=== PATIENT | male | born 1955 | race Caucasian/White ===

== ENCOUNTER 2016-10-23 10:24 | Emergency (ER) | payer BC, OTHER ==
[2016-10-23 10:31] VITALS: BMI 33.6
[2016-10-23] MEDS ORDERED: ONDANSETRON 4 MG/2 ML VIAL IVPB ONE (10:58)
[2016-10-23] MEDS ORDERED: morphine CARPU-JECT 4 MG/1 ML DISP.SYRIN IVPUSH ONE (10:58)
[2016-10-23] MEDS ORDERED: SODIUM CHLORIDE 500 ML IV ONE (10:58)
[2016-10-23] MEDS ORDERED: morphine CARPU-JECT 4 MG/1 ML DISP.SYRIN ONE (10:59)
[2016-10-23] MEDS ORDERED: ONDANSETRON 4 MG/2 ML VIAL ONE (11:00)
--- NOTE | 2016-10-23 11:14 | PDOC ---
History of Present Illness - General History Source: Patient Exam Limitations: No Limitations - History of Present Illness Initial Comments: 10/23/16 11:14 The patient is a 61 year old male, with no significant past medical history who presents to the emergency department with right testicular pain, nausea, and vomiting since this morning. The patient reports acute onset of right testicular /groin pain this morning, waking up from sleep secondary to pain. He reports his pain occasionally radiates from, his right flank into his testicle. He reports his pain is constant with intermittent intensity often worse at certain without any clear aggravating factors. He reports taking Aleve this morning with moderate alleviation of his pain. He denies any history of kidney stones. He denies his testicular pain being worse while urinating. He notes urinating normally, describing his urine as a full uninterrupted stream. He denies any recent fevers, chills, headache or dizziness. He denies any recent diarrhea or constipation. He denies any recent chest pain or shortness of breath. He denies any recent dysuria, frequency, urgency or hematuria. Allergies: NKA Past surgical history: None reported. Social History: Nonsmoker. Denies EtOH use and recreational drug use. <Jamar Guillory - Last Filed: 10/23/16 11:14> <Neal Espino - Last Filed: 10/23/16 16:26> - General Chief Complaint: Pain, Acute Stated Complaint: NAUSEA Time Seen by Provider: 10/23/16 10:57 Past History <Jamar Guillory - Last Filed: 10/23/16 11:14> - Past Medical History Other medical history: Denies - Immunization History Immunization Up to Date: Yes - Psycho/Social/Smoking Cessation Hx Anxiety: No Suicidal Ideation: No Smoking History: Never smoked Have you smoked in the past 12 months: No If you are a former smoker, when did you quit?: 10yrs Information on smoking cessation initiated: No Hx Alcohol Use: No Drug/Substance Use Hx: No Substance Use Type: None <Neal Espino - Last Filed: 10/23/16 16:26> - Past Medical History Allergies/Adverse Reactions: Allergies Allergy/AdvReac Type Severity Reaction Status Date / Time No Known Allergies Allergy Verified 10/23/16 10:31 Home Medications: Ambulatory Orders Naproxen [Naprosyn -] 500 mg PO BID PRN #14 tablet 10/23/16 Oxycodone HCl/Acetaminophen [Percocet 5-325 mg Tablet] 1 - 2 tab PO TID PRN #20 tab MDD 6 10/23/16 Tamsulosin HCl [Flomax -] 0.4 mg PO DAILY #14 cap.er.24h 10/23/16 Review of Systems - Review of Systems Constitutional: No: Chills, Fever Respiratory: No: Cough, Shortness of Breath Cardiac (ROS): No: Chest Pain ABD/GI: Yes: Nausea. No: Constipated, Diarrhea, Vomiting : Yes: Frequency. No: Burning, Discharge, Flank Pain, Hematuria, Incontinence Integumentary: No: Rash All Other Systems: Reviewed and Negative <Neal Espino - Last Filed: 10/23/16 16:26> *Physical Exam - Vital Signs Last Vital Signs Temp Pulse Resp BP Pulse Ox 97.7 F 51 L 16 144/87 100 10/23/16 10:28 10/23/16 10:28 10/23/16 10:28 10/23/16 10:28 10/23/16 10:28 - Physical Exam Comments: 10/23/16 11:14 GENERAL: The patient is awake, alert, and fully oriented, in no acute distress. HEAD: Normal with no signs of trauma. EYES: Pupils equal, round and reactive to light, extraocular movements intact, sclera anicteric, conjunctiva clear with no pallor. ENT: Ears normal, nares patent, oropharynx clear without exudates. Moist mucous membranes. NECK: Normal range of motion, supple without lymphadenopathy, JVD, or masses. LUNGS: Breath sounds equal, clear to auscultation bilaterally. No wheeze/ crackles. HEART: Regular rate and rhythm, normal S1 and S2 without murmur or rub. ABDOMEN: Soft/nontender/nondistended. BS wnl. No guarding or rebound. No palpable masses. No hepatosplenomegaly. NO CVA tenderness. : Normal uncircumcised. No urethral discharge. Non tender focally. Bilaterally distended testicles. No scrotal swelling or erythema. No inguinal hernia or lymphadenopathy. No palpably distended bladder EXTREMITIES: Normal range of motion, no edema. No clubbing or cyanosis. No cords , erythema, or tenderness. NEUROLOGICAL: Cranial nerves II through XII grossly intact. Normal speech, normal gait. PSYCH: Normal mood, normal affect. SKIN: Warm, Dry, normal turgor, no rashes or lesions noted. <TorreyJamar Heredia - Last Filed: 10/23/16 11:14> - Vital Signs Last Vital Signs Temp Pulse Resp BP Pulse Ox 97.7 F 51 L 16 144/87 100 10/23/16 10:28 10/23/16 10:28 10/23/16 10:28 10/23/16 10:28 10/23/16 10:28 <Neal Espino - Last Filed: 10/23/16 16:26> ED Treatment Course - LABORATORY CBC & Chemistry Diagram: 10/23/16 11:15 10/23/16 11:15 <Neal Espino - Last Filed: 10/23/16 16:26> Medical Decision Making - Medical Decision Making 10/23/16 11:11 A portion of this note was documented by scribe services under my direction. I have reviewed the details of the note, within reason, and agree with the documentation with the following case summary and management plan written by me. Healthy 61-year-old male with no significant past medical history other than possible BPH presents with acute onset of right lateral abdominal/right groin pain that awoke him from sleep this morning around 7 AM, persistent since then with varying severity, now more localized to the right groin and associated with nausea. No vomiting or diarrhea/constipation, has had baseline urine output without dysuria or hematuria, no fevers or chills. No other GI complaints , no neurological complaints. Vital signs normal. Standing at bedside, well-appearing but in some discomfort Normal exam, abdomen is benign without focal tenderness, no CVA tenderness, normal exam, no evidence of hernia or torsion/infection. 61-year-old male with acute onset of right groin pain this morning. Could be consistent with renal colic, rule out UTI, rule out hypertension. Less likely GI or vascular in etiology. No cardio pulmonary complaints. Labs, urinalysis Pain control, nausea control Imaging as per workup, if hematuria would check CTAP. Reassess 10/23/16 14:38 Labs are within normal limits, urinalysis is clear of blood or infection. CAT scan was performed given the history and suspicion for renal colic, confirmed impacted right UVJ stone that is 1-2 mm in size. Mild right hydronephrosis, otherwise uncomplicated. Will treat with Toradol and Flomax, given small size and only 7 hours since onset, likely to pass spontaneously. Can follow-up with urology as outpatient. 10/23/16 16:21 Feels MUCH better, pain resolved. Exam benign. Agrees with d/c plan on pain meds , flomax, f/u. Understands return criteria. <Neal Espino - Last Filed: 10/23/16 16:26> *DC/Admit/Observation/Transfer - Attestations Scribe Attestion: 10/23/16 11:14 Documentation prepared by Jamar Guillory, acting as biomedical specialist for Neal Espino MD. <Jamar Guillory - Last Filed: 10/23/16 11:14> <Neal Espino - Last Filed: 10/23/16 16:26> Diagnosis at time of Disposition: Renal colic on right side Groin pain Qualifiers: Laterality: right Qualified Code(s): R10.31 - Right lower quadrant pain - Discharge Dispostion Disposition: HOME Condition at time of disposition: Improved - Prescriptions Prescriptions: Tamsulosin HCl [Flomax -] 0.4 mg PO DAILY #14 cap.er.24h Naproxen [Naprosyn -] 500 mg PO BID PRN #14 tablet PRN Reason: Pain Oxycodone HCl/Acetaminophen [Percocet 5-325 mg Tablet] 1 - 2 tab PO TID PRN #20 tab MDD 6 PRN Reason: Pain - Referrals Referrals: Oscar Covington MD [Staff Physician] - - Patient Instructions Printed Discharge Instructions: DI for Kidney Stones Additional Instructions: Activity as tolerated. Stay hydrated. Your symptoms are due to a kidney stone on the right side. Use a urine filter as instructed. Take naproxen as prescribed for moderate pain, percocet as prescribed as needed for severe pain (percocet can make you lightheaded, so take proper precautions). Flomax daily to help pass the stone. Continue your medications as previously prescribed by your physician. You should follow up with your primary doctor and urologist as soon as possible regarding today's emergency department visit. Return to the emergency department for any new or concerning symptoms, particularly inability to urinate, intolerable pain, fever/chills.
[2016-10-23 11:24] LABS: BASOPHIL 1.1 % (0-2.0); EOSINOPHIL 2.4 % (0-4.5); MCH 30.3 pg (25.7-33.7); MCHC 34.4 g/dl (32.0-35.9); MEAN PLT VOLUME 9.9 fl (7.5-11.1); NEUTROPHILS 64.6 % (42.8-82.8); PLATELET COUNT 212 K/MM3 (134-434); RDW 13.3 % (11.9-15.9); WHITE BLOOD COUNT 10.9 K/mm3 (4.0-10.0)
[2016-10-23] MEDS ORDERED: HYDROmorphone HCL CARPU-JECT 1 MG/1 ML DISP.SYRIN IVPUSH ONE (11:38)
[2016-10-23] MEDS ORDERED: HYDROmorphone HCL CARPU-JECT 1 MG/1 ML DISP.SYRIN ONE (11:40)
[2016-10-23 11:48] LABS: ANION GAP 4 (8-16); BILIRUBIN,TOTAL 0.7 mg/dL (0.2-1.0); CALCIUM 9.5 mg/dL (8.5-10.1); CO2 30 mmol/L (21-32); CREATININE 1.1 mg/dL (0.7-1.3); GLUCOSE,RANDOM 114 mg/dL (74-106); SGPT/ALT 32 U/L (12-78); TOT PROT 7.2 g/dl (6.4-8.2)
[2016-10-23 11:49] LABS: ALK PHOS 101 U/L (45-117); SGOT/AST 23 U/L (15-37)
[2016-10-23 12:23] LABS: URINE APPEARANCE CLEAR; URINE BILIRUBIN NEGATIVE (NEGATIVE); URINE BLOOD NEGATIVE (NEGATIVE); URINE COLOR YELLOW; URINE GLUCOSE (UA) NEGATIVE (NEGATIVE); URINE KETONE NEGATIVE (NEGATIVE); URINE LEUK ESTERASE NEGATIVE (NEGATIVE); URINE NITRITE NEGATIVE (NEGATIVE); URINE PROTEIN NEGATIVE (NEGATIVE); URINE UROBILINOGEN NEGATIVE mg/dL (0.2-1.0)
[2016-10-23] MEDS ORDERED: TAMSULOSIN HCL 0.4 MG CAP.ER.24H (FP) PO ONE (14:38)
[2016-10-23] MEDS ORDERED: KETOROLAC TROMETHAMINE 30 MG/1 ML VIAL IVPUSH ONE (14:38)
[2016-10-23] MEDS ORDERED: KETOROLAC TROMETHAMINE 30 MG/1 ML VIAL ONE (14:56)
[2016-10-23] MEDS ORDERED: TAMSULOSIN HCL 0.4 MG CAP.ER.24H (FP) ONE (14:56)
[2016-10-23 15:52] VITALS: BP 140/95; PULSE 64; TEMP 98.6
== END 2016-10-23 16:36 | disposition home or self-care (01) ==
LOC: JER 10:24
PROC: 3E033NZ Introduction of Analgesics, Hypnotics, Sedatives into Peripheral Vein, Percutaneous Approach (ICD-10-PCS; principal; 2016-10-23)
PROC: 3E0333Z Introduction of Anti-inflammatory into Peripheral Vein, Percutaneous Approach (ICD-10-PCS; 2016-10-23)
PROC: 3E033GC Introduction of Other Therapeutic Substance into Peripheral Vein, Percutaneous Approach (ICD-10-PCS; 2016-10-23)
PROC: 3E033NZ Introduction of Analgesics, Hypnotics, Sedatives into Peripheral Vein, Percutaneous Approach (ICD-10-PCS; 2016-10-23)
DX: N13.2 Hydronephrosis with renal and ureteral calculous obstruction (principal)
CPT/HCPCS: 36415; 74176-TC; 80053; 81003; 83690; 85025; 87086; 99283-25

== ENCOUNTER 2017-04-21 19:41 | Inpatient (IN) | payer BC, OTHER ==
--- NOTE | 2017-04-21 21:02 | PDOC ---
Attending Attestation - Resident Resident Name: Marla Ding - ED Attending Attestation I have performed the following: I have examined & evaluated the patient, The case was reviewed & discussed with the resident, I agree w/resident's findings & plan - HPI HPI: 04/21/17 22:34 Pt comes with RUQ pain and icterus; he has a hx of large stone in the center of his GB. The stone was incidentally seen in June 2016, when pt was being evaluated for kidney stones (he has since passed the stone) Last week on Sunday he had a long episode of RUQ/epigastric pain, after eating at a food establishment, and again after eating a maltese. Since that time pain has been intermittent. Then 4 days ago on Sunday he went to the [facility] clinic on [facility] and was told that he has a large symptomatic gallstone, and they scheduled him to see the surgeon this Sunday for an elective procedure. Also diagnosed with a UTI at that time and he was started on bactrim. Pt has not been maintaining a fat-free diet. Today he appears with RUQ pain and icterus. - Physicial Exam PE: 04/21/17 22:57 Agree with resident. Pt has minimal abd pain; he is grossly icteric. He is afebrile and looks surprisingly well. - Medical Decision Making 04/21/17 22:58 Pt has lipase of 27K and he has elevated LFTS and a total bili of 12. We spoke to GI. Pt will be placed NPO and IV ringers lactate ordered. We are currently paging [facility] surgery Pt will be admitted. 04/22/17 00:39 Patient Name: BRITTNY MARTE THIS IS A PRELIMINARY REPORT FROM [facility] EXAM: Right upper quadrant ultrasound IMAGES: 40 DATE OF EXAM: 2017-04-21 21:16:41 REASON FOR EXAM: Right upper quadrant pain COMPARISON: None. FINDINGS: Cholelithiasis. Slight gallbladder wall thickening measuring up to 3.8 mm in thickness. No obvious pericholecystic fluid. Findings are equivocal for cholecystitis. Common bile duct dilated at 10 mm. Pancreas mostly obscured by bowel gas. The liver is unremarkable and without enlargement.
[2017-04-21 21:12] LABS: BASO % 1.5 % (0-2.0); EOS % 1.7 % (0-4.5); HEMATOCRIT 41.9 % (35.4-49); HEMOGLOBIN 14.3 GM/dL (11.7-16.9); LYMPH % 14.2 % (8-40); MCH 30.3 pg (25.7-33.7); MCHC 34.1 g/dl (32.0-35.9); MEAN CELL VOLUME 88.8 fl (80-96); MEAN PLT VOLUME 9.6 fl (7.5-11.1); MONO % 6.8 % (3.8-10.2); NEUT % 75.8 % (42.8-82.8); PLATELET COUNT 203 K/MM3 (134-434); RBC 4.71 M/mm3 (4.00-5.60); RDW 13.7 % (11.9-15.9); WHITE BLOOD COUNT 8.5 K/mm3 (4.0-10.0)
--- NOTE | 2017-04-21 21:19 | PDOC ---
History of Present Illness - General Chief Complaint: Pain, Acute Stated Complaint: ABDOMINAL PAIN Time Seen by Provider: 04/21/17 20:23 - History of Present Illness Initial Comments: Mr Mabry is a 61yo M with a known history of gallstones who presents with RUQ pain. Last sunday, the patient experienced sharp 9/10 constant epigastric pain that lasted 1 hour and resolved spontaneously. Since then he has had intermittent RUQ pain, at times worse with meals. He endorses loss of appetite, nausea after meals, general malaise, but denies fevers and chills. He had an episode of generalized pruritis, and also noticed dark colored urine. Girlfriend at bedside attests that eyes appear more yellow. He endorses a generally poor diet. Last year he had a CT abdomen which showed multiple incidental gallstones with a large one measuring 3.8 x 2.3cm. He presented to a clinic this past Sunday who referred him to [facility]. He has appointment this Sunday w/ Dr. Ryan Dasilva (GI). He was also incidentally found by PMD to have UTI, on day 4 of Bactrim BID. Currently the patient denies RUQ, but endorses intermittent nature. PMD: None, PMD retired. Goes to [facility] at [address] [facility] SH: Denies Smoking, drinking, drugs Allergies: NKDA SgHx: No prior surgeries Past History - Past Medical History Allergies/Adverse Reactions: Allergies Allergy/AdvReac Type Severity Reaction Status Date / Time No Known Allergies Allergy Verified 04/21/17 19:49 Home Medications: Ambulatory Orders Sulfamethoxazole/Trimethoprim [Bactrim Ds -] 1 tab PO DAILY 04/21/17 COPD: No - Immunization History Immunization Up to Date: Yes - Suicide/Smoking/Psychosocial Hx Smoking History: Never smoked Have you smoked in the past 12 months: No If you are a former smoker, when did you quit?: 10yrs Information on smoking cessation initiated: No Hx Alcohol Use: No Drug/Substance Use Hx: No Substance Use Type: None *Physical Exam - Vital Signs Last Vital Signs Temp Pulse Resp BP Pulse Ox 98.5 F 86 16 142/92 97 04/21/17 19:46 04/21/17 19:46 04/21/17 19:46 04/21/17 19:46 04/21/17 19:46 - Physical Exam Comments: GEN: AAOx3, NAD, Lying comfortably, not in pain michelle HEENT: PERRLA, EOMi, +scleral icterus, +frenulum icterus CV: S1, S2, RRR LUNG: CTABL ABD: Soft, NT, neg murphys, normoactive BS MSK: No edema, no erythema NEURO: CN 2-12 grossly intact ED Treatment Course - LABORATORY CBC & Chemistry Diagram: 04/21/17 21:00 04/21/17 21:00 - RADIOLOGY Radiology Studies Ordered: Category Date Time Status GALLBLADDER US [US] Stat Ultrasound 04/21/17 20:50 Ordered Medical Decision Making - Medical Decision Making 61yo M with known hx of gallstones (including one large 3.8 x 2.3cm stone) presents with intermittent RUQ pain and painless jaundice DDx include: cholecystitis, biliary colic, external mass compression (?panc head mass). Other ddx includes: pancreatitis, atypical ACS -- CBC, CMP -- UA, UCx -- Cardiac profile, EKG -- Lipase -- RUQ ultrasound 04/21/17 22:31 Labs notable for transaminitis, elevated ALP, and lipase >27k. Pt is remarkably not in pain. U/S taken - unofficial read by me shows multiple stones, mildly thickened gallbladder wall w/ dilated CBD, no pericholecystic fluid, neg murphys as per tech. DDx include CBD stone vs external compression 04/21/17 22:[address] Macario (economic development coordinator GI) who recommended treatment for gallstone pancreatitis w/ LR high volume, IV Abx (Unasyn + Flagyl), stat MRCP. Pre-op labs. Call placed to Dr Laguna (economic development coordinator surgery) who recommends no scheduled IV abx. Repeat lipase+amylase in AM. 04/21/17 23:23 Case d/w Dr Espinoza from [facility]. Pt accepted 04/22/17 01:12 Imaging economic development coordinator for RUQ U/s Slight gallbladder wall thickening measuring 3.8mm in thickness. No obvious pericholecystic fluid. Findings are equivocal for cholecystitis. Common bile duct dilated at 10mm. Pancreas mostly obscured by bowel gas. The liver is unremarkable and without enlargement *DC/Admit/Observation/Transfer Diagnosis at time of Disposition: Acute gallstone pancreatitis - Discharge Dispostion Condition at time of disposition: Stable Admit: Yes - Referrals - Patient Instructions - Post Discharge Activity
[2017-04-21 21:35] LABS: URINE APPEARANCE CLEAR; URINE BLOOD NEGATIVE (NEGATIVE); URINE COLOR AMBER; URINE GLUCOSE (UA) NEGATIVE (NEGATIVE); URINE KETONE NEGATIVE (NEGATIVE); URINE LEUK ESTERASE NEGATIVE (NEGATIVE); URINE NITRITE NEGATIVE (NEGATIVE); URINE PROTEIN NEGATIVE (NEGATIVE); URINE UROBILINOGEN 4.0 E.U/dl mg/dL (0.2-1.0)
[2017-04-21 21:55] LABS: ALBUMIN 3.6 g/dl (3.4-5.0); ALK PHOS 293 U/L (45-117); ANION GAP 9 (8-16); BLOOD UREA NITROGEN 11 mg/dL (7-18); CALCIUM 8.6 mg/dL (8.5-10.1); CHLORIDE 106 mmol/L (98-107); CO2 23 mmol/L (21-32); GLUCOSE,RANDOM 109 mg/dL (74-106); POTASSIUM 3.9 mmol/L (3.5-5.1); SGOT/AST 146 U/L (15-37); SGPT/ALT 294 U/L (12-78); SODIUM 138 mmol/L (136-145); TOT PROT 6.6 g/dl (6.4-8.2)
[2017-04-21] MEDS ORDERED: AMPICILLIN NA/SULBACTAM NA 3 GM in SODIUM CHLORIDE 100 ML IVPB ONE (22:48)
[2017-04-21] MEDS ORDERED: LACTATED RINGERS SOLUTION 1,000 ML/1,000 ML INFUS.BAG IV SCH (23:00)
[2017-04-22] MEDS ORDERED: ONDANSETRON 4 MG/2 ML VIAL IVPUSH PRN (00:45)
[2017-04-22] MEDS ORDERED: morphine CARPU-JECT 2 MG/1 ML DISP.SYRIN IVPUSH PRN (00:45)
--- NOTE | 2017-04-22 00:45 | HP ---
CC: Abdominal pain PCP: None HPI: 61 yo M h/o cholelithiasis presents to the ED with epigastric and RUQ pain x 1 week. Patient recalls acute onset of pain from the 2 locations unannounced. He first felt a sharp, 8/10, non-radiating, constant pain in epigastric region then the pain migrated to RUQ and became dull, 5/10, non- radiating, intermittent pain which is a/w itchiness on his upper and lower extremities and non-bilious non-bloody nausea/vomiting. Food intake would exacerbate the pain and bowel rest seems to alleviate the symptom somewhat. Patient also endorses cloudy urine for which he's diagnosed UTI and taking bactrim. His girlfriend also noticed yellowing of his skin and eye and he was scheduled to meet his gastrointestinologist this Sunday for the first time for the symptom but unfortunately his pain has gotten worse which prompted him to come in the ED. Denies fever, chills, chest pain, shortness of breath, urinary sx, weakness, melana or hematemesis. PMH: Gallstone PSH: None Social History: Used to be a social drinker and quit drinking 10 yrs ago; used to be a half-pack smoker but quit 10 years ago; no drug use Family History: Father of lung cancer, mother of colon cancer Allergy: NKDA Home Meds: Sulfamethoxazole/Trimethoprim [Bactrim Ds -] 1 tab PO DAILY ROS: Constitutional: No fever, +loss of appetite, no weakness or weight change HEENT: No headache, nasal congestion, sore throat, ear pain, vision change Skin: +itchiness Cardiovascular: No chest pain or sob Pulmonary: No cough (dry or productive), colored sputum Endocrine: No polyuria, polydipsia, skin /hair changes, heat/cold intolerance. GI: +abd pain, +nausea or vomiting : +cloudy urine, No frequency, urgency, dysuria, or hematuria. MSK: No joint or muscle pain Psychology: No depression, anxiety, or insomnia. Physical Examination Vital Signs Period Temp Pulse Resp BP Sys/Mccloud Pulse Ox Last 24 Hr 98.5 F 86 16 142/92 97 General: Patient sitting in chair in no obvious discomfort or distress, AAO x 3. able to speak full sentences, appropriate to stated age. Eyes: PERRLA ENT: +scleral icterus, +jaundice under tongue, oropharynx clear with no lesions/ erythema. Neck: Supple with no LAD or masses. Lymph Nodes: No cervical or inguinal LAD. Cardiovascular: RRR, S1 and S2 normal, no m/g/r. Lungs: CTAB Abdomen: obese, Normoactive bowel sounds. Non-distended, No tenderness even upon deep palpation, no guarding/rebound, -sullivan sign Extremeties: No peripheral edema CBCD WBC 8.5 K/mm3 (4.0-10.0) 04/21/17 21:00 RBC 4.71 M/mm3 (4.00-5.60) 04/21/17 21:00 Hgb 14.3 GM/dL (11.7-16.9) 04/21/17 21:00 Hct 41.9 % (35.4-49) 04/21/17 21:00 MCV 88.8 fl (80-96) 04/21/17 21:00 MCHC 34.1 g/dl (32.0-35.9) 04/21/17 21:00 RDW 13.7 % (11.9-15.9) 04/21/17 21:00 Plt Count 203 K/MM3 (134-434) 04/21/17 21:00 MPV 9.6 fl (7.5-11.1) 04/21/17 21:00 CMP Sodium 138 mmol/L (136-145) 04/21/17 21:00 Potassium 3.9 mmol/L (3.5-5.1) 04/21/17 21:00 Chloride 106 mmol/L (98-107) 04/21/17 21:00 Carbon Dioxide 23 mmol/L (21-32) D 04/21/17 21:00 Anion Gap 9 (8-16) 04/21/17 21:00 BUN 11 mg/dL (7-18) D 04/21/17 21:00 Creatinine 1.0 mg/dL (0.7-1.3) 04/21/17 21:00 Creat Clearance w eGFR > 60 (>60) 04/21/17 21:00 Calcium 8.6 mg/dL (8.5-10.1) 04/21/17 21:00 Total Bilirubin 12.0 mg/dL (0.2-1.0) H D 04/21/17 21:00 AST 146 U/L (15-37) H D 04/21/17 21:00 ALT 294 U/L (12-78) H D 04/21/17 21:00 Alkaline Phosphatase 293 U/L (45-117) H D 04/21/17 21:00 Total Protein 6.6 g/dl (6.4-8.2) 04/21/17 21:00 Albumin 3.6 g/dl (3.4-5.0) 04/21/17 21:00 Imaging: RUQ u/S on 04/22: Pending official read, per imaging electronic component processor: gallstone + dilated CBD A/P: 61 yo M admitted to med-surg for acute pancreatitis. Pancreatitis, acute - Hypodermically stable with no leukocytosis - 2/2 post-hepatic pathology: CBD obstruction by gallstone confirmed on Ultrasound * stat MRCP scheduled, ERCP to follow * surgery onboard for in-hospital lap nba - r/o other etiologies: lipid profile and hep panel - Received flagyl 500mg x1 in ED - Will give zosyn 3.375g IVPB x 1 - Aggressive fluid resuscitation LR@400cc/hr - Dilaudid 0.5mg Q4H PRN for pain control - NPO Transminitis and Elevated bilirubin - Obstructive pattern liver chemistries: Elevated alk phos and direct bili * with acute hepatocellular injury: elevated AST and ALT - Cont. to trend liver chemistries FEN - LR 400cc/hr - Replete lytes prn - NPO Prophylaxis - DVT: SCDs - GI: not indicated Dispo - MRCP then ERCP then cholecystectomy Fabian Boston Medicine PGY2 Pager: [phone] Visit type - Emergency Visit Emergency Visit: Yes Care time: The patient presented to the Emergency Department on the above date and was hospitalized for further evaluation of their emergent condition. - New Patient This patient is new to me today: Yes Date on this admission: 04/22/17 - Critical Care Critical Care patient: No
[2017-04-22 00:54] LABS: INR 0.99 (0.82-1.09); PROTHROMBIN TIME (PATIENT) 11.2 SEC (9.98-11.88)
[2017-04-22] MEDS ORDERED: PIPERACILLIN/TAZOB 3.375 GM 50 ML IVPB ONE ×2 (01:00→09:00)
[2017-04-22] MEDS ORDERED: LACTATED RINGERS SOLUTION 1,000 ML/1,000 ML INFUS.BAG IV SCH ×3 (01:25→08:11)
--- NOTE | 2017-04-22 01:28 | PN ---
Teaching Attending Note Name of Resident: Fabian Boston ATTENDING PHYSICIAN STATEMENT I saw and evaluated the patient. Chart, data, imaging reviewed. I reviewed the resident's note and discussed the case with the resident. I agree with the resident's findings and plan as documented. SUBJECTIVE: 61yo M with a known history of gallstones c/o RUQ abdominal pain for about one week which worsened, moved to epigastric area, associated with nausea, vomiting. Pt also noted yellowing of skin and eyes. +pruritus, dark colored urine. He denied any trauma to abdomen. Denied any etoh abuse. No known dyslipidemia. US performed in ER which showed dilated common bile duct, cholelithiasis, mild gallbladder thickening. OBJECTIVE: Last Vital Signs Temp Pulse Resp BP Pulse Ox 98.5 F 86 16 142/92 97 04/21/17 19:46 04/21/17 19:46 04/21/17 19:46 04/21/17 19:46 04/21/17 19:46 General-nad, aaox3 heent- icteric sclera, moist oral mucosa, no sinus tenderness neck -supple, no masses cv -s1+S2+ RRR chest- cta b/l abdomen -obese, mild discomfort to epigastric palpation ext -no pedal edema, no clubbing SKin- icteric sclera Abnormal Lab Results 04/21/17 04/21/17 04/21/17 20:59 21:00 21:24 Random Glucose 109 H Total Bilirubin 12.0 H D Direct Bilirubin AST 146 H D ALT 294 H D Alkaline Phosphatase 293 H D Creatine Kinase 360 H CK-MB (CK-2) 5.138 H Lipase 16769 H 04/21/17 22:39 Random Glucose Total Bilirubin Direct Bilirubin 10.1 H AST ALT Alkaline Phosphatase Creatine Kinase CK-MB (CK-2) Lipase ASSESSMENT AND PLAN: #Pancreatitis likely 2/2 cholelithiasis and possible cholecystitis; cholestatic pattern of transaminitis. Gallstones seen in gallbladder and dilated CBD. Should r/o hypertriglyceridemia. Pt denied EtoH. Pt would benefit likely from MRCP/ERCP and should obtain surgical evaluation for possible cholecystectomy. R /o acute hepatitis as cause of transaminitis. Should cover with broad spectrum antibiotics for cholecystitis. -admit to med/surg -NPO -ZOfran PRN if nausea or vomiting -Morphine 2mg IV PRN if pain -aggressive IV fluid hydration -send lipid panel -hepatitis viral panel -tylenol level -liver U/S -GI consult for possible ERCP/MRCP -surgery evaluation for cholecystectomy -blood cultures x2 -zosyn 3.375 g IV stat #DVT ppx -heparin sc -
[2017-04-22] MEDS ORDERED: HYDROmorphone HCL CARPU-JECT 1 MG/1 ML DISP.SYRIN IVPUSH PRN (01:47)
[2017-04-22] MEDS ORDERED: HYDROmorphone HCL CARPU-JECT 2 MG/1 ML DISP.SYRIN ONE (01:58)
[2017-04-22 02:16] LABS: BILIRUBIN,DIRECT 10.4 mg/dL (0.0-0.2)
[2017-04-22 03:32] VITALS: BMI 33.5
[2017-04-22] MEDS ORDERED: HYDROmorphone HCL CARPU-JECT 2 MG/1 ML DISP.SYRIN IVPB PRN (04:02)
[2017-04-22 08:52] LABS: HEMATOCRIT 41.1 % (35.4-49); HEMOGLOBIN 13.5 GM/dL (11.7-16.9); MCH 29.6 pg (25.7-33.7); MCHC 32.9 g/dl (32.0-35.9); MEAN CELL VOLUME 89.8 fl (80-96); MEAN PLT VOLUME 9.9 fl (7.5-11.1); PLATELET COUNT 201 K/MM3 (134-434); RBC 4.58 M/mm3 (4.00-5.60); RDW 13.9 % (11.9-15.9); WHITE BLOOD COUNT 9.4 K/mm3 (4.0-10.0)
--- NOTE | 2017-04-22 08:53 | PN ---
Progress Note (short form) - Note Progress Note: Subjective:no fever or chills, has no abd pain at this moment after IV pain meds. no N/v but felt nauseous at home. had a liquid BM this am reports intermittent pain in RUQ x 1 week , which was constant yesterday. knows of cholelithiasis since september when he was imaged for nephrolithiasis reports visiting his PCP on for this painand he was prescribed bactrim for possible UTI ( received 4 days of that ) Objective: Vital Signs: Last Vital Signs Temp Pulse Resp BP Pulse Ox 98.7 F 88 20 147/81 95 04/22/17 06:00 04/22/17 06:00 04/22/17 06:00 04/22/17 06:00 04/22/17 03:38 Laboratory Results - last 24 hr 04/21/17 04/21/17 04/21/17 20:59 21:00 21:00 WBC 8.5 RBC 4.71 Hgb 14.3 Hct 41.9 MCV 88.8 MCH 30.3 MCHC 34.1 RDW 13.7 Plt Count 203 MPV 9.6 Neutrophils % 75.8 Lymphocytes % 14.2 D Monocytes % 6.8 Eosinophils % 1.7 Basophils % 1.5 PT with INR INR Sodium 138 Potassium 3.9 Chloride 106 Carbon Dioxide 23 D Anion Gap 9 BUN 11 D Creatinine 1.0 Creat Clearance w eGFR > 60 Random Glucose 109 H Calcium 8.6 Total Bilirubin 12.0 H D Direct Bilirubin AST 146 H D ALT 294 H D Alkaline Phosphatase 293 H D Creatine Kinase 360 H Creatine Kinase Index 1.4 CK-MB (CK-2) 5.138 H Troponin I 0.03 Total Protein 6.6 Albumin 3.6 Triglycerides Cholesterol Total LDL Cholesterol HDL Cholesterol Total Amylase Lipase Urine Color Urine Appearance Urine pH Ur Specific [place] Urine Protein Urine Glucose (UA) Urine Ketones Urine Blood Urine Nitrite Urine Bilirubin Urine Urobilinogen Ur Leukocyte Esterase Blood Type Antibody Screen 04/21/17 04/21/17 04/21/17 21:20 21:24 22:22 WBC RBC Hgb Hct MCV MCH MCHC RDW Plt Count MPV Neutrophils % Lymphocytes % Monocytes % Eosinophils % Basophils % PT with INR INR Sodium Potassium Chloride Carbon Dioxide Anion Gap BUN Creatinine Creat Clearance w eGFR Random Glucose Calcium Total Bilirubin Direct Bilirubin AST ALT Alkaline Phosphatase Creatine Kinase Creatine Kinase Index CK-MB (CK-2) Troponin I Total Protein Albumin Triglycerides Cholesterol Total LDL Cholesterol HDL Cholesterol Total Amylase Cancelled Lipase 76583 H Urine Color [place] Urine Appearance Clear Urine pH 5.0 Ur Specific [place] 1.015 Urine Protein Negative Urine Glucose (UA) Negative Urine Ketones Negative Urine Blood Negative Urine Nitrite Negative Urine Bilirubin 4.0 Urine Urobilinogen 4.0 e.u/dl Ur Leukocyte Esterase Negative Blood Type Antibody Screen 04/21/17 04/22/17 04/22/17 22:39 00:20 00:20 WBC RBC Hgb Hct MCV MCH MCHC RDW Plt Count MPV Neutrophils % Lymphocytes % Monocytes % Eosinophils % Basophils % PT with INR 11.20 INR 0.99 Sodium Potassium Chloride Carbon Dioxide Anion Gap BUN Creatinine Creat Clearance w eGFR Random Glucose Calcium Total Bilirubin Direct Bilirubin 10.1 H AST ALT Alkaline Phosphatase Creatine Kinase Creatine Kinase Index CK-MB (CK-2) Troponin I Total Protein Albumin Triglycerides Cholesterol Total LDL Cholesterol HDL Cholesterol Total Amylase Lipase Urine Color Urine Appearance Urine pH Ur Specific [place] Urine Protein Urine Glucose (UA) Urine Ketones Urine Blood Urine Nitrite Urine Bilirubin Urine Urobilinogen Ur Leukocyte Esterase Blood Type B POSITIVE Antibody Screen Negative 04/22/17 01:33 WBC RBC Hgb Hct MCV MCH MCHC RDW Plt Count MPV Neutrophils % Lymphocytes % Monocytes % Eosinophils % Basophils % PT with INR INR Sodium Potassium Chloride Carbon Dioxide Anion Gap BUN Creatinine Creat Clearance w eGFR Random Glucose Calcium Total Bilirubin Direct Bilirubin 10.4 H AST ALT Alkaline Phosphatase Creatine Kinase Creatine Kinase Index CK-MB (CK-2) Troponin I Total Protein Albumin Triglycerides 268 H Cholesterol 176 Total LDL Cholesterol 114 H HDL Cholesterol 14 L Total Amylase 1456 H Lipase Urine Color Urine Appearance Urine pH Ur Specific [place] Urine Protein Urine Glucose (UA) Urine Ketones Urine Blood Urine Nitrite Urine Bilirubin Urine Urobilinogen Ur Leukocyte Esterase Blood Type Antibody Screen Physical Exam: NAD , AAOx3 MMM, no LAP in neck . no facial droop, jaundiced sclera CV:RRR, NO MRG Lungs : CTAB Abd: soft , no Tenderness to deep palpation ( just got pain meds ), Neg Raines, liver is not palpated or percussed . NL BS Ext: no edema in upper or lower ext. DP 2+ b/l , RP 2+ b/l Imaging: US report reviewed. CT A/P 10/09 report reviewed Assessment/Plan: 61 y/o gentleman with h/o nephrolithiasis and known cholelithiasis who presented with abd pain x 1 day prior to presentation . he was found to have acute pancreatitis 1- Acute pancreatitis : likely gall stone pancreatitis, given dilated CBD on US and obstructive picture of LFTS. No evidence of acutecholecystitis ( fever, leukocytosis , - Raines, US ) TG < 500, no active drinking , Nl ca - IVF hydration with LR - pain management - MRCP pending , will likely need ERCP. - although there is no evidence of infection, will give unasyn empirically as risk of ascending cholangitis is high without removal of any possible obstructing CBD stone. can stop after ERCP /sx or if MRCP shows no CBD stone - surgical consult, need CCY this admission - repeat LFTS and labs pending - transaminitis , obstructive picture. Hep panel pending 2- ? recent diagnosis of UTI, UA and urine cx pending -on unasyn now - will obtain any urine cx/UA from PC tomorrow 3- Hyperlipidemia: LDL 114 ,10 yr risk for CAD per [place] risk score is 38.75 % qualify for statin treatment , but will hold off with his acute transaminitis Check A1c 4- Hold DVT PX for possible ERCP Visit type - Emergency Visit Emergency Visit: Yes ED Registration Date: 04/21/17 Care time: The patient presented to the Emergency Department on the above date and was hospitalized for further evaluation of their emergent condition. - New Patient This patient is new to me today: Yes Date on this admission: 04/22/17 - Critical Care Critical Care patient: No
[2017-04-22] MEDS ORDERED: PIPERACILLIN/TAZOB 3.375 GM 3.375 GM in DEXTROSE 5%-WATER - 100 ML IVPB ONE (09:00)
[2017-04-22 09:09] LABS: ALBUMIN 3.1 g/dl (3.4-5.0); ANION GAP 11 (8-16); BLOOD UREA NITROGEN 8 mg/dL (7-18); CALCIUM 8.2 mg/dL (8.5-10.1); CHLORIDE 106 mmol/L (98-107); CO2 22 mmol/L (21-32); CREATININE 0.7 mg/dL (0.7-1.3); GLUCOSE,RANDOM 70 mg/dL (74-106); POTASSIUM 3.6 mmol/L (3.5-5.1); SGOT/AST 116 U/L (15-37); SGPT/ALT 252 U/L (12-78); SODIUM 139 mmol/L (136-145)
[2017-04-22 09:11] LABS: ALK PHOS 277 U/L (45-117)
[2017-04-22 10:45] LABS: AMYLASE 1110 U/L (25-115); LIPASE 11311 U/L (73-393)
--- NOTE | 2017-04-22 10:49 | CON.GI ---
Consult Consult Specialty:: Gastroenterology ( covering Dr. Navarro) Referred by:: Christofer Mccray M.D. Reason for Consultation:: Abdominal pain and nausea - History of Present Illness Chief Complaint: Nausea, RUQ pain History of Present Illness: 61M has been experiencing epigastric and RUQ pain since 04/08/17. He also had nausea and anorexia but did not vomit. He denies chills or fevers. He denies any history of liver or pancreatic disease. He no longer drinks alcohol. His mother of colon cancer. he had a colon polyp removed 4 years ago at [facility]. He has become pruritic and noted tea colored urine for the past 3 days. Yesterday he developed severe epigastric pain after eating bread which prompted him to go to the ER. His PMD had diagnosed him with a UTI earlier in the week. He had a CT about a year ago when he passed a renal stone which also revealed gallstones. 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 Place of : Other ([place]) History of Recent Travel: No Home Medications - Allergies Allergies/Adverse Reactions: Allergies Allergy/AdvReac Type Severity Reaction Status Date / Time No Known Allergies Allergy Verified 04/21/17 19:49 - Home Medications Home Medications: Ambulatory Orders Sulfamethoxazole/Trimethoprim [Bactrim Ds -] 1 tab PO DAILY 04/21/17 Family Disease History - Family Disease History Family Disease History: CA: Father ( prostate cancer), Mother ( colon cancer in her 80's) Review of Systems - Review of Systems Constitutional: reports: Loss of Appetite Eyes: reports: No Symptoms HENT: reports: No Symptoms Neck: reports: No Symptoms Cardiovascular: reports: No Symptoms Respiratory: reports: No Symptoms Gastrointestinal: reports: Abdominal Pain, Nausea, Other (Jaundice with pruritus and tea colored stool) Genitourinary: reports: No Symptoms Musculoskeletal: reports: No Symptoms Neurological: reports: No Symptoms Endocrine: reports: No Symptoms Physical Exam-GI Vital Signs: Vital Signs Temperature 98.7 F 04/22/17 06:00 Pulse Rate 88 04/22/17 06:00 Respiratory Rate 20 04/22/17 06:00 Blood Pressure 147/81 04/22/17 06:00 O2 Sat by Pulse Oximetry (%) 95 04/22/17 03:38 CBC,CMP WBC 9.4 K/mm3 (4.0-10.0) 04/22/17 07:30 RBC 4.58 M/mm3 (4.00-5.60) 04/22/17 07:30 Hgb 13.5 GM/dL (11.7-16.9) 04/22/17 07:30 Hct 41.1 % (35.4-49) 04/22/17 07:30 MCV 89.8 fl (80-96) 04/22/17 07:30 MCH 29.6 pg (25.7-33.7) 04/22/17 07:30 MCHC 32.9 g/dl (32.0-35.9) 04/22/17 07:30 RDW 13.9 % (11.9-15.9) 04/22/17 07:30 Plt Count 201 K/MM3 (134-434) 04/22/17 07:30 MPV 9.9 fl (7.5-11.1) 04/22/17 07:30 Neutrophils % 75.8 % (42.8-82.8) 04/21/17 21:00 Lymphocytes % 14.2 % (8-40) D 04/21/17 21:00 Monocytes % 6.8 % (3.8-10.2) 04/21/17 21:00 Eosinophils % 1.7 % (0-4.5) 04/21/17 21:00 Basophils % 1.5 % (0-2.0) 04/21/17 21:00 Sodium 139 mmol/L (136-145) 04/22/17 07:30 Potassium 3.6 mmol/L (3.5-5.1) 04/22/17 07:30 Chloride 106 mmol/L (98-107) 04/22/17 07:30 Carbon Dioxide 22 mmol/L (21-32) 04/22/17 07:30 Anion Gap 11 (8-16) 04/22/17 07:30 BUN 8 mg/dL (7-18) D 04/22/17 07:30 Creatinine 0.7 mg/dL (0.7-1.3) D 04/22/17 07:30 Creat Clearance w eGFR > 60 (>60) 04/22/17 07:30 Random Glucose 70 mg/dL (74-106) L D 04/22/17 07:30 Calcium 8.2 mg/dL (8.5-10.1) L 04/22/17 07:30 Total Bilirubin 14.0 mg/dL (0.2-1.0) H 04/22/17 07:30 Direct Bilirubin 10.4 mg/dL (0.0-0.2) H 04/22/17 01:33 AST 116 U/L (15-37) H D 04/22/17 07:30 ALT 252 U/L (12-78) H 04/22/17 07:30 Alkaline Phosphatase 277 U/L (45-117) H 04/22/17 07:30 Creatine Kinase 360 IU/L (39-308) H 04/21/17 20:59 Creatine Kinase Index 1.4 % (0.0-5.0) 04/21/17 20:59 CK-MB (CK-2) 5.138 ng/mL (0.5-3.6) H 04/21/17 20:59 Troponin I 0.03 ng/ml (0.00-0.05) 04/21/17 20:59 Total Protein 6.0 g/dl (6.4-8.2) L 04/22/17 07:30 Albumin 3.1 g/dl (3.4-5.0) L 04/22/17 07:30 Triglycerides 268 mg/dL (35-160) H 04/22/17 01:33 Cholesterol 176 mg/dL (50-200) 04/22/17 01:33 Total LDL Cholesterol 114 mg/dL (5-100) H 04/22/17 01:33 HDL Cholesterol 14 mg/dL (40-60) L 04/22/17 01:33 Total Amylase 1110 U/L (25-115) H D 04/22/17 07:30 Lipase 36502 U/L (73-393) H 04/22/17 07:30 Current Medications Generic Name Dose Route Start Last Admin Trade Name Freq PRN Reason Stop Dose Admin Hydromorphone HCl 0.5 mg 04/22/17 04:02 04/22/17 06:55 Dilaudid Injection - IVPB 0.5 mg Q6H PRN Administration PAIN Lactated Ringer's 1,000 ml in 1,000 mls @ 400 mls/hr 04/22/17 08:11 Lactated Ringers Solution IV ASDIR SENIA Ampicillin Sodium/Sulbactam 100 mls @ 200 mls/hr 04/22/17 18:00 Sodium 3 gm/ Sodium Chloride IVPB Q8H-IV SENIA Ondansetron HCl 4 mg 04/22/17 00:45 04/22/17 02:03 Zofran Injection IVPUSH 4 mg Q6H PRN Administration NAUSEA Constitutional: Yes: Calm Eyes: Yes: Sclera Icterus HENT: Yes: Normocephalic Neck: Yes: Supple Cardiovascular: Yes: Regular Rate and Rhythm Respiratory: Yes: CTA Bilaterally Gastrointestinal Inspection: Yes: Distention ...Auscultate: Yes: Normoactive Bowel Sounds ...Palpate: Yes: Soft, Tenderness, Epigastium (mild epigastric tenderness but no mass) ...Rectal Exam: Yes: Guaiac Negative, Other (2+ prostate) Genitourinary: Yes: Other (normal testicles, no hernias) Musculoskeletal: Yes: WNL Extremities: Yes: WNL Edema: No Peripheral Pulses WNL: Yes Neurological: Yes: Alert, Oriented Psychiatric: Yes: Alert Labs: CBC, BMP 04/22/17 07:30 04/22/17 07:30 INR, PTT INR 0.99 (0.82-1.09) 04/22/17 00:20 Laboratory Tests 04/21/17 04/22/17 04/22/17 21:24 01:33 07:30 WBC Plt Count BUN 8 D Creatinine 0.7 D Total Bilirubin 14.0 H Direct Bilirubin 10.4 H AST 116 H D ALT 252 H Alkaline Phosphatase 277 H Albumin 3.1 L Total Amylase 1456 H Lipase 55539 H 04/22/17 07:30 WBC 9.4 Plt Count 201 BUN Creatinine Total Bilirubin Direct Bilirubin AST ALT Alkaline Phosphatase Albumin Total Amylase Lipase Imaging - Results Ultrasound: Image Reviewed (gallstones, 1 cm CBD) Problem List - Problems (1) Obstructive jaundice Assessment/Plan: Given the acute nature of this illness with pancreatitis and lack of ductal dilation I believe that the patient is more likely to have obstructive jaundice and pancreatitis due to gallstones than as a result of a pancreatic or bile duct malignancy but either possibility exists. I have discussed the need for an ERCP to evaluate the CBD and to relieve the obstruction through stone extraction or stent palliation. I have discussed the ERCP in detail with Glen and informed of the potential risks associated with ERCP including hemorrhage, perforation and multiorgan failure that can arise as a result of ERCP induced pancreatitis. Agree with the antibiotic coverage and brisk IV fluid administration . Will give Indocin suppository to minimize pancreatitis risk. Await MRCP result. Dr. Navarro will return tomorrow. Code(s): K83.8 - OTHER SPECIFIED DISEASES OF BILIARY TRACT (2) Nausea Code(s): R11.0 - NAUSEA (3) Pruritus Code(s): L29.9 - PRURITUS, UNSPECIFIED
--- NOTE | 2017-04-22 11:28 | CONSULT ---
Consult Consult Specialty:: General Surgery Referred by:: Dr. Lee Reason for Consultation:: gallstones with high bilirubin and pancreatitis, jaundice - History of Present Illness Chief Complaint: epigastric and RUQ pain, pruritus, nausea History of Present Illness: 61yo M with cholelithiasis found 10/[address] done for renal stone and no surgical history presented to ER with 1 week of intermittent epigastric and RUQ pain associated with nausea but no vomiting, anorexia, dark urine, jaundice that he didn't notice, and drafter directional survey stool. Last Sunday, he had sudden epigastric pain which lasted about an hour and resolved. Later that day he had it again after eating, and had some nausea with it, but has not vomited. Sunday , the pain returned and also radiated to the RUQ, where he had intermittent dull , pressure-like pain in the RUQ over the next couple of days. Sunday, he went to a clinic, and was told he had a UTI and given Bactrim. He told them he had known gallstones, and the provider recommended he see a surgeon. He then made an appointment to see a junior systems analyst this Sunday and was waiting for that appointment. Sunday, he also noted his urine started becoming darker. Over the next several days, he continued to not feel well, and had anorexia and was not eating much. night, he began having generalized itching. He states he did not notice his skin becoming yellow. He did not have a change in bowel habits, but his stool was dark early in the week, and his last was very light brown. Yesterday, he forced himself to have some bread, but the pain came back, somewhat more generalized and he had a lot of gas. He came to the ER yesterday, and had one episode of diarrhea yesterday. He denies F/C all week, no headache or dizziness. In the ER, he was afebrile, with normal wbc and marked jaundice. LFTs are all elevated, with a bilirubin of 12, up to 14 this am (direct 10). Amylase and lipase also elevated to 1456 and 89181, down this am to 1110 and 11K. UA showed +bili and no infection. LFTs are slightly decreased this am except bilirubin. WBC remains normal. US was done showing gallstones in a contracted gallbladder with extrahepatic ductal dilation to 1cm. No obvious liver lesions or abnormalities, pancreas was not well visualized. He was admitted to medicine, started on antibiotics, and GI and surgery are consulted. MRCP with contrast is pending, and GI plans ERCP tomorrow. 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 History of Recent Travel: No Home Medications - Allergies Allergies/Adverse Reactions: Allergies Allergy/AdvReac Type Severity Reaction Status Date / Time No Known Allergies Allergy Verified 04/21/17 19:49 - Home Medications Home Medications: Ambulatory Orders Sulfamethoxazole/Trimethoprim [Bactrim Ds -] 1 tab PO DAILY 04/21/17 Home Medications (free text): started abx Sunday Family Disease History - Family Disease History Family Disease History: CA: Father ( prostate cancer 79), Mother ( colon cancer in her 80's) Other Family History: 10 siblings, all healthy Review of Systems - Review of Systems Constitutional: reports: Loss of Appetite, Malaise ("generally not feeling well "). denies: Chills, Fever Eyes: reports: Other (wears glasses). denies: Recent Change in Vision HENT: denies: Difficult Swallowing, Nasal Congestion, Throat Pain Neck: denies: Swollen Glands, Tenderness Cardiovascular: denies: Chest Pain, Palpitations Respiratory: denies: Cough, SOB Gastrointestinal: reports: Abdominal Pain (with hpi), Nausea (with hpi), Other ( drafter directional survey stool). denies: Constipation, Diarrhea (one episode only yesterday), Vomiting Genitourinary: reports: Frequency (for 1-2 days last week), Other (dark urine since Sunday). denies: Burning, Dysuria Musculoskeletal: denies: Back Pain, Joint Pain, Muscle Pain Integumentary: reports: Change in Color (jaundiced, but pt did not recognize), Pruritis. denies: Rash Neurological: denies: Dizziness, Headache, Unsteady Gait Psychiatric: denies: Anxiety, Depression Physical Exam Vital Signs: Vital Signs Temperature 98.7 F 04/22/17 06:00 Pulse Rate 88 04/22/17 06:00 Respiratory Rate 20 04/22/17 06:00 Blood Pressure 147/81 04/22/17 06:00 O2 Sat by Pulse Oximetry (%) 95 04/22/17 03:38 Constitutional: Yes: Well Nourished, No Distress, Calm Eyes: Yes: EOM Intact, Sclera Icterus HENT: Yes: Atraumatic, Normocephalic Neck: Yes: Supple, Trachea Midline Cardiovascular: Yes: Regular Rate and Rhythm, Murmur (soft systolic) Respiratory: Yes: Regular, CTA Bilaterally Gastrointestinal: Yes: Normal Bowel Sounds, Soft, Abdomen, Obese. No: Palpable Mass, Tenderness, Tenderness, Epigastrium ...Rectal Exam: Yes: Deferred Renal/: No: CVA Tenderness - Left, CVA Tenderness - Right Musculoskeletal: No: Joint Stiffness, Joint Swelling Extremities: No: Cool, Cyanosis Edema: No Peripheral Pulses WNL: Yes Integumentary: Yes: Jaundice. No: Rash Neurological: Yes: Alert, Oriented Psychiatric: Yes: Alert, Oriented Labs: CBC, BMP 04/22/17 07:30 04/22/17 07:30 CMP Sodium 139 mmol/L (136-145) 04/22/17 07:30 Potassium 3.6 mmol/L (3.5-5.1) 04/22/17 07:30 Chloride 106 mmol/L (98-107) 04/22/17 07:30 Carbon Dioxide 22 mmol/L (21-32) 04/22/17 07:30 Anion Gap 11 (8-16) 04/22/17 07:30 BUN 8 mg/dL (7-18) D 04/22/17 07:30 Creatinine 0.7 mg/dL (0.7-1.3) D 04/22/17 07:30 Creat Clearance w eGFR > 60 (>60) 04/22/17 07:30 Random Glucose 70 mg/dL (74-106) L D 04/22/17 07:30 Calcium 8.2 mg/dL (8.5-10.1) L 04/22/17 07:30 Total Bilirubin 14.0 mg/dL (0.2-1.0) H 04/22/17 07:30 Direct Bilirubin 10.4 mg/dL (0.0-0.2) H 04/22/17 01:33 AST 116 U/L (15-37) H D 04/22/17 07:30 ALT 252 U/L (12-78) H 04/22/17 07:30 Alkaline Phosphatase 277 U/L (45-117) H 04/22/17 07:30 Creatine Kinase 360 IU/L (39-308) H 04/21/17 20:59 Creatine Kinase Index 1.4 % (0.0-5.0) 04/21/17 20:59 CK-MB (CK-2) 5.138 ng/mL (0.5-3.6) H 04/21/17 20:59 Troponin I 0.03 ng/ml (0.00-0.05) 04/21/17 20:59 Total Protein 6.0 g/dl (6.4-8.2) L 04/22/17 07:30 Albumin 3.1 g/dl (3.4-5.0) L 04/22/17 07:30 Triglycerides 268 mg/dL (35-160) H 04/22/17 01:33 Cholesterol 176 mg/dL (50-200) 04/22/17 01:33 Total LDL Cholesterol 114 mg/dL (5-100) H 04/22/17 01:33 HDL Cholesterol 14 mg/dL (40-60) L 04/22/17 01:33 Total Amylase 1110 U/L (25-115) H D 04/22/17 07:30 Lipase 00255 U/L (73-393) H 04/22/17 07:30 INR, PTT INR 0.99 (0.82-1.09) 04/22/17 00:20 Urine Test Results Urine Color [place] 04/21/17 21:20 Urine Appearance Clear 04/21/17 21:20 Urine pH 5.0 (5.0-8.0) 04/21/17 21:20 Ur Specific [place] 1.015 (1.001-1.035) 04/21/17 21:20 Urine Protein Negative (NEGATIVE) 04/21/17 21:20 Urine Glucose (UA) Negative (NEGATIVE) 04/21/17 21:20 Urine Ketones Negative (NEGATIVE) 04/21/17 21:20 Urine Blood Negative (NEGATIVE) 04/21/17 21:20 Urine Nitrite Negative (NEGATIVE) 04/21/17 21:20 Urine Bilirubin 4.0 (NEGATIVE) 04/21/17 21:20 Ur Leukocyte Esterase Negative (NEGATIVE) 04/21/17 21:20 Imaging - Results Ultrasound: Report Reviewed, Image Reviewed MRI: Pending Problem List - Problems (1) Pancreatitis due to biliary obstruction Assessment/Plan: admitted to medicine NPO/IVF hydration trending labs - starting to decrease MRI/MRCP pending ERCP planned for tomorrow by GI unclear if secondary to stone or mass causing obstruction differential includes gallstone pancreatitis, pancreatic mass, ampullary mass or other extrinsic compression further plans pending results of above Code(s): K85.90 - ACUTE PANCREATITIS WITHOUT NECROSIS OR INFECTION, UNSP; K83.1 - OBSTRUCTION OF BILE DUCT Qualifiers: Chronicity: acute Acute pancreatitis complication: no infection or necrosis Qualified Code(s): K85.10 - Biliary acute pancreatitis without necrosis or infection (2) Obstructive jaundice Code(s): K83.8 - OTHER SPECIFIED DISEASES OF BILIARY TRACT (3) Cholestatic pruritus Code(s): L29.8 - OTHER PRURITUS (4) Calculus of gallbladder with biliary obstruction but without cholecystitis Assessment/Plan: unclear if stone causing CBD obstruction may need cholecystectomy pending MRI and ERCP results, if purely gallstone- related will follow with you Code(s): K80.21 - CALCULUS OF GALLBLADDER W/O CHOLECYSTITIS WITH OBSTRUCTION (5) Nausea Code(s): R11.0 - NAUSEA Assessment/Plan Thank you for the opportunity to participate in the care of this patient.
[2017-04-22] MEDS: LACTATED RINGERS SOLUTION 1,000 ML/1,000 ML INFUS.BAG IV SCH ×3 (11:33→22:14)
--- NOTE | 2017-04-22 11:39 | EKG ---
Test Reason : Blood Pressure : / mmHG Vent. Rate : 084 BPM Atrial Rate : 084 BPM P-R Int : 160 ms QRS Dur : 100 ms QT Int : 352 ms P-R-T Axes : 050 018 022 degrees QTc Int : 415 ms NORMAL SINUS RHYTHM POSSIBLE LEFT ATRIAL ENLARGEMENT BORDERLINE ECG NO PREVIOUS ECGS AVAILABLE Confirmed by MD SANDRA, INDER ([id number]) on 04/22/2017 11:39:27 AM Referred By: Confirmed By:INDER FLORES MD
[2017-04-22] MEDS ORDERED: PT OWN MED DRAWER 7, Y5N ONE (17:30)
[2017-04-22] MEDS: AMPICILLIN NA/SULBACTAM NA 3 GM in SODIUM CHLORIDE 100 ML IVPB SCH (17:31)
[2017-04-23] MEDS ORDERED: PT OWN MED DRAWER 7, Y5N ONE ×3 (01:31→10:45)
[2017-04-23] MEDS: AMPICILLIN NA/SULBACTAM NA 3 GM in SODIUM CHLORIDE 100 ML IVPB SCH ×2 (01:35→09:25)
--- NOTE | 2017-04-23 06:05 | PN ---
Physical Exam: SUBJECTIVE: Patient seen and examined at bedside. No acute events overnight. denies any fever, chills, N/V/D/C. no abdominal pain or chest pain. still npo. OBJECTIVE: Vital Signs Period Temp Pulse Resp BP Sys/Mccloud Pulse Ox Last 24 Hr 98.1 F-98.9 F 68-89 18-20 140-150/80-86 95-95 GENERAL: The patient is awake, alert, and fully oriented, in no acute distress. HEAD: Normal with no signs of trauma. EYES: sclera icteric, conjunctiva clear. ENT: moist mucous membranes. NECK: supple. LUNGS: Breath sounds equal, clear to auscultation bilaterally, no wheezes, no crackles, no accessory muscle use. HEART: Regular rate and rhythm, S1, S2 without murmur, rub or gallop. ABDOMEN: Soft, nontender, nondistended, normoactive bowel sounds, no guarding, no rebound,chanel - , liver not palpable. EXTREMITIES: 2+ pulses, warm, well-perfused, no edema. NEUROLOGICAL: , good mentation, no focal deficit , Normal speech, gait not observed. PSYCH: Normal mood, normal affect. SKIN: Warm, dry, icteric skin Laboratory Results - last 24 hr 04/22/17 04/22/17 07:30 07:30 WBC 9.4 RBC 4.58 Hgb 13.5 Hct 41.1 MCV 89.8 MCH 29.6 MCHC 32.9 RDW 13.9 Plt Count 201 MPV 9.9 Sodium 139 Potassium 3.6 Chloride 106 Carbon Dioxide 22 Anion Gap 11 BUN 8 D Creatinine 0.7 D Creat Clearance w eGFR > 60 Random Glucose 70 L D Calcium 8.2 L Total Bilirubin 14.0 H AST 116 H D ALT 252 H Alkaline Phosphatase 277 H Total Protein 6.0 L Albumin 3.1 L Total Amylase 1110 H D Lipase 84022 H Active Medications Generic Name Dose Route Start Last Admin Trade Name Freq PRN Reason Stop Dose Admin Hydromorphone HCl 0.5 mg 04/22/17 04:02 04/22/17 06:55 Dilaudid Injection - IVPB 0.5 mg Q6H PRN Administration PAIN Ampicillin Sodium/Sulbactam 100 mls @ 200 mls/hr 04/22/17 18:00 04/23/17 01: 35 Sodium 3 gm/ Sodium Chloride IVPB 200 mls/hr Q8H-IV SENIA Administration Lactated Ringer's 1,000 ml in 1,000 mls @ 250 mls/hr 04/22/17 11:10 04/22/17 22:14 Lactated Ringers Solution IV 250 mls/hr ASDIR SENIA Administration Indomethacin 50 mg 04/23/17 09:00 Indocin Suppository - [place] 04/23/17 09:01 ONCE ONE Ondansetron HCl 4 mg 04/22/17 00:45 04/22/17 02:03 Zofran Injection IVPUSH 4 mg Q6H PRN Administration NAUSEA Assesment and plan: 61 yo M admitted to med-surg for acute pancreatitis. # Acute gallbladder stone Pancreatitis, * Hypodermically stable with no leukocytosis * 2/2 post-hepatic CBD obstruction by gallstone confirmed on Ultrasound * S/P MRCP result reviewed * S/P ERCP today with copious sludge and small stone fragments with small amount of purulence obtained from duct, sphincterotomy done, biliary stent left with small duodenal ulcer noted * surgery onboard schedulled for lap vs oppen cholecystectomy tomorrow * f/u lipid profile and hep panel * Received flagyl 500mg x1 in ED * given zosyn 3.375g IVPB x 1 * ID on board started on Imipenem * Aggressive fluid resuscitation LR@250 cc/hr * D5w, 1/2 ns added due to hypoglycemia * Dilaudid 0.5mg Q4H PRN for pain control * NPO after mid night * Zofran for nausea * PPI added #Transminitis and Elevated bilirubin * Obstructive pattern liver chemistries: Elevated alk phos and direct bili * can not R/O acute hepatocellular injury: elevated AST and ALT, trend * CBC, CMP , Hep panel , H.pylori panel, Amylase, lipase , C reactive protien #small duodenal ulcer noted, * Protonic 40 mg Po BID * # Hyperlipidemia: * LDL 114 ,10 yr risk for CAD per [place] risk score is 38.75 % * qualify for statin treatment , but will hold off with his acute transaminitis #FEN * LR 250cc/hr, D5w /1/2ns added due to hypoglycemia * Replete lytes prn * NPO #Prophylaxis * DVT: SCDs, No hep due to sphinchtertomy. * GI: Protonix 40 mg po BID due to duodenal ulcer #Dispo * Admit to med surg * possible cholecystectomy tomorrow. Visit type - Emergency Visit Emergency Visit: Yes ED Registration Date: 04/21/17 Care time: The patient presented to the Emergency Department on the above date and was hospitalized for further evaluation of their emergent condition. - New Patient This patient is new to me today: Yes Date on this admission: 04/23/17 - Critical Care Critical Care patient: No - Discharge Referral Referred to [facility] Med P.C.: No
[2017-04-23] MEDS: LACTATED RINGERS SOLUTION 1,000 ML/1,000 ML INFUS.BAG IV SCH ×2 (06:55→18:02)
[2017-04-23 08:33] LABS: BASO % 0.4 % (0-2.0); EOS % 1.4 % (0-4.5); HEMATOCRIT 38.9 % (35.4-49); HEMOGLOBIN 13.1 GM/dL (11.7-16.9); LYMPH % 13.1 % (8-40); MCH 29.9 pg (25.7-33.7); MCHC 33.7 g/dl (32.0-35.9); MEAN CELL VOLUME 88.9 fl (80-96); MEAN PLT VOLUME 9.8 fl (7.5-11.1); MONO % 7.2 % (3.8-10.2); NEUT % 77.9 % (42.8-82.8); PLATELET COUNT 178 K/MM3 (134-434); RBC 4.38 M/mm3 (4.00-5.60); RDW 13.9 % (11.9-15.9); WHITE BLOOD COUNT 8.4 K/mm3 (4.0-10.0)
[2017-04-23] MEDS ORDERED: INDOMETHACIN 50 MG RECTAL SUPPOSITORY PR ONE (09:00)
[2017-04-23 09:20] LABS: AMYLASE 140 U/L (25-115)
[2017-04-23 09:23] LABS: ALBUMIN 2.8 g/dl (3.4-5.0); ANION GAP 10 (8-16); BLOOD UREA NITROGEN 8 mg/dL (7-18); CALCIUM 8.2 mg/dL (8.5-10.1); CHLORIDE 104 mmol/L (98-107); CO2 25 mmol/L (21-32); CREATININE 0.6 mg/dL (0.7-1.3); GLUCOSE,RANDOM 52 mg/dL (74-106); PHOSPHOROUS 2.4 mg/dL (2.5-4.9); SGPT/ALT 207 U/L (12-78); SODIUM 139 mmol/L (136-145); TOT PROT 5.6 g/dl (6.4-8.2)
[2017-04-23 09:28] LABS: LIPASE 614 U/L (73-393)
[2017-04-23 09:33] LABS: ALK PHOS 298 U/L (45-117)
[2017-04-23 09:50] LABS: MAGNESIUM 1.1 mg/dL (1.8-2.4); POTASSIUM 3.7 mmol/L (3.5-5.1)
[2017-04-23 09:51] LABS: SGOT/AST 7 U/L (15-37)
[2017-04-23] MEDS ORDERED: GLYCOPYRROLATE 0.2 MG/1 ML VIAL ONE ×3 (11:16)
[2017-04-23] MEDS ORDERED: ROCURONIUM BROMIDE 50 MG/5 ML VIAL ONE (11:16)
[2017-04-23] MEDS ORDERED: NEOSTIGMINE METHYLSULFATE 0.5 MG/ML - 10 ML MDV ONE (11:16)
[2017-04-23] MEDS ORDERED: PROPOFOL 20 ML ONE (11:16)
[2017-04-23] MEDS ORDERED: DEXAMETHASONE SOD PHOSPHATE 10 MG/1 ML VIAL ONE (11:41)
[2017-04-23] MEDS ORDERED: ONDANSETRON 4 MG/2 ML VIAL ONE (11:41)
[2017-04-23] MEDS ORDERED: IOHEXOL 300 MG/ML INFUS..BTL IV ONE (12:11)
--- NOTE | 2017-04-23 13:13 | PN ---
Progress Note (short form) - Note Progress Note: GI Procedure Note: Please see scanned ERCP report. Multiple tiny stones and debris were removed from the CBD with pus becoming evident and indicative of cholangitis. A stent was placed when the sphincterotomy began to swell and close and when it was evident that the duct required continued uninterrupted drainage. Dr. Laguna was present for the procedure and plans for cholecystectomy were discussed. Problem List - Problems (1) Obstructive jaundice Code(s): K83.8 - OTHER SPECIFIED DISEASES OF BILIARY TRACT (2) Nausea Code(s): R11.0 - NAUSEA (3) Pruritus Code(s): L29.9 - PRURITUS, UNSPECIFIED
--- NOTE | 2017-04-23 13:22 | PN ---
Progress Note, Physician History of Present Illness: Pt with obstructive jaundice, gallstone pancreatitis, choledocholithiasis by MRCP. Denies pain this am. Seen briefly in endoscopy just before ERCP. No abdominal tenderness. No nausea. - Current Medication List Current Medications: Active Medications Hydromorphone HCl (Dilaudid Injection -) 0.5 mg IVPB Q6H PRN PRN Reason: PAIN Last Admin: 04/22/17 06:55 Dose: 0.5 mg Ampicillin Sodium/Sulbactam (Sodium 3 gm/ Sodium Chloride) 100 mls @ 200 mls/ hr IVPB Q8H-IV SENIA Last Admin: 04/23/17 09:25 Dose: 200 mls/hr Lactated Ringer's (Lactated Ringers Solution) 1,000 ml in 1,000 mls @ 250 mls/ hr IV ASDIR SENIA Last Admin: 04/23/17 06:55 Dose: 250 mls/hr Ondansetron HCl (Zofran Injection) 4 mg IVPUSH Q6H PRN PRN Reason: NAUSEA Last Admin: 04/22/17 02:03 Dose: 4 mg - Objective Vital Signs: Vital Signs Temperature 98.2 F 04/23/17 12:55 Pulse Rate 79 04/23/17 13:12 Respiratory Rate 18 04/23/17 13:12 Blood Pressure 139/76 04/23/17 13:12 O2 Sat by Pulse Oximetry (%) 98 04/23/17 13:12 Constitutional: Yes: Well Nourished, No Distress, Calm Eyes: Yes: EOM Intact, Sclera Icterus HENT: Yes: Atraumatic, Normocephalic Gastrointestinal: Yes: Soft, Abdomen, Obese. No: Tenderness, Tenderness, Epigastrium ...Rectal Exam: Yes: Deferred Genitourinary: No: CVA Tenderness - Left, CVA Tenderness - Right Extremities: No: Cool, Cyanosis Integumentary: Yes: Jaundice. No: Rash Neurological: Yes: Alert, Oriented Psychiatric: Yes: Alert, Oriented Labs: CBC, BMP 04/23/17 07:00 04/23/17 07:00 CMP Sodium 139 mmol/L (136-145) 04/23/17 07:00 Potassium 3.7 mmol/L (3.5-5.1) 04/23/17 07:00 Chloride 104 mmol/L (98-107) 04/23/17 07:00 Carbon Dioxide 25 mmol/L (21-32) 04/23/17 07:00 Anion Gap 10 (8-16) 04/23/17 07:00 BUN 8 mg/dL (7-18) 04/23/17 07:00 Creatinine 0.6 mg/dL (0.7-1.3) L 04/23/17 07:00 Creat Clearance w eGFR > 60 (>60) 04/23/17 07:00 Random Glucose 52 mg/dL (74-106) L D 04/23/17 07:00 Hemoglobin A1c % 4.4 % (4.8-6.0) L 04/23/17 07:00 Calcium 8.2 mg/dL (8.5-10.1) L 04/23/17 07:00 Phosphorus 2.4 mg/dL (2.5-4.9) L 04/23/17 07:00 Magnesium 1.1 mg/dL (1.8-2.4) L 04/23/17 07:00 Total Bilirubin 17.0 mg/dL (0.2-1.0) H* D 04/23/17 07:00 Direct Bilirubin 10.4 mg/dL (0.0-0.2) H 04/22/17 01:33 AST 7 U/L (15-37) L D 04/23/17 07:00 ALT 207 U/L (12-78) H 04/23/17 07:00 Alkaline Phosphatase 298 U/L (45-117) H 04/23/17 07:00 Creatine Kinase 360 IU/L (39-308) H 04/21/17 20:59 Creatine Kinase Index 1.4 % (0.0-5.0) 04/21/17 20:59 CK-MB (CK-2) 5.138 ng/mL (0.5-3.6) H 04/21/17 20:59 Troponin I 0.03 ng/ml (0.00-0.05) 04/21/17 20:59 C-Reactive Protein 6.0 MG/DL (0.00-0.3) H 04/23/17 07:00 Total Protein 5.6 g/dl (6.4-8.2) L 04/23/17 07:00 Albumin 2.8 g/dl (3.4-5.0) L 04/23/17 07:00 Triglycerides 268 mg/dL (35-160) H 04/22/17 01:33 Cholesterol 176 mg/dL (50-200) 04/22/17 01:33 Total LDL Cholesterol 114 mg/dL (5-100) H 04/22/17 01:33 HDL Cholesterol 14 mg/dL (40-60) L 04/22/17 01:33 Total Amylase 140 U/L (25-115) H D 04/23/17 07:00 Lipase 614 U/L (73-393) H 04/23/17 07:00 T bili up to 17 am/lip down glucose low K, Mg, Phos low - ....Imaging MRI: Report Reviewed, Image Reviewed (stones and sludge in distal CBD, CBD to 1.2cm, no peripancreatic changes) Problem List - Problems (1) Pancreatitis due to biliary obstruction Assessment/Plan: continue NPO/IVF hydration - consider adding D5 to fluids or check glucose periodically continue trending labs - am/lip decreasing MRCP results noted ERCP observed with GI - copious sludge and small stone fragments with small amount of purulence obtained from duct, sphincterotomy done, biliary stent left also small duodenal ulcer noted will plan for laparoscopic possible open cholecystectomy tomorrow pending am labs and pt clinical condition (OR held for 11am) will discuss with patient R/B/A of procedure and sign consent prior to OR anticipate amylase and lipase may go up a bit tomorrow s/p ERCP Code(s): K85.90 - ACUTE PANCREATITIS WITHOUT NECROSIS OR INFECTION, UNSP; K83.1 - OBSTRUCTION OF BILE DUCT Qualifiers: Chronicity: acute Acute pancreatitis complication: no infection or necrosis Qualified Code(s): K85.10 - Biliary acute pancreatitis without necrosis or infection (2) Calculus of gallbladder and bile duct with obstruction without cholecystitis Assessment/Plan: see above plan for lap possible open nba tomorrow, provided bilirubin decreasing and pt clinically without significant pain/tenderness continue brisk hydration replete lytes prn Code(s): K80.71 - CALCULUS OF GB AND BILE DUCT W/O CHOLECYST W OBSTRUCTION (3) Obstructive jaundice Code(s): K83.8 - OTHER SPECIFIED DISEASES OF BILIARY TRACT (4) Cholestatic pruritus Code(s): L29.8 - OTHER PRURITUS (5) Nausea Assessment/Plan: resolved Code(s): R11.0 - NAUSEA (6) Duodenal ulcer without hemorrhage, perforation, or obstruction Assessment/Plan: noted on ERCP add PPI Code(s): K26.9 - DUODENAL ULCER, UNSP ACUTE OR CHRONIC, W/O HEMOR OR PERF
[2017-04-23] MEDS ORDERED: MAGNESIUM SULF 50% (8.12 MEQ/2 ML-1 GM VIAL) IVPB ONE (13:28)
[2017-04-23] MEDS ORDERED: PANTOPRAZOLE SODIUM 40 MG VIAL IVPUSH SCH (13:30)
[2017-04-23] MEDS ORDERED: DEXTROSE 5%-0.45% SALINE 1,000 ML IV SCH (13:30)
[2017-04-23] MEDS ORDERED: LACTATED RINGERS SOLUTION 1,000 ML/1,000 ML INFUS.BAG IV SCH (13:30)
[2017-04-23] MEDS ORDERED: MAGNESIUM SULFATE IN WATER 2 GM/50 ML IVPB IVPB ONE (14:00)
[2017-04-23 14:11] LABS: HBSAG SCREEN Negative (Negative); HEP A AB, IGM Negative (Negative); HEP B CORE AB, TOT Negative (Negative)
[2017-04-23] MEDS ORDERED: POTASSIUM PHOSPHATE 15 MM in DEXTROSE 5%-WATER - 250 ML IVPB ONE (15:00)
--- NOTE | 2017-04-23 17:04 | CON.ID ---
Consult Consult Specialty:: infectious diseases Referred by:: Reason for Consultation:: cholecystitis with pus from cbd - History of Present Illness Chief Complaint: abd pain History of Present Illness: 61yo M with h/o of cholelithiasis about 5- 6 months back was admitted because intermittent epigastric pain ongoing for a week and localized to RUQ. Denies any other particular symptom last couple of days patient has been having this onset of epigastric pain which has been coming and going and is associated with food. . Sunday, he went to a clinic, and was told he had a UTI and given Bactrim. He told them he had known gallstones, and the provider recommended he see a surgeon. . Over the next several days, he continued to not feel well, and had anorexia and was not eating much. night, he began having generalized itching. He states he did not notice his skin becoming yellow. He did not have a change in bowel habits, but his stool was dark early in the week , and his last was very light brown. patient was admitted and worked up and seen by surgery and gi patient was found to have pus coming from the cbd and multiple stones were found currently patient feels much better patient on endoscopy was found to have cholangitis present with pus according to gi patient used to use etoh before ,denies any drugs - History Source History Provided By: Patient Limitations to Obtaining History: No Limitations - Past Medical History Hepatobiliary: Yes: Cholelithiasis Renal/: Yes: Renal Calculi - Past Surgical History Past Surgical History: Yes: None - Alcohol/Substance Use Hx Alcohol Use: No (quit social use 12 years ago) History of Substance Use: reports: None - Smoking History Smoking history: Former smoker Have you smoked in the past 12 months: No If you are a former smoker, when did you quit?: 10yrs ago - 1/2 ppd x 30-35 years - Social History Usual Living Arrangement: Alone () ADL: Independent 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 History of Recent Travel: No Home Medications - Allergies Allergies/Adverse Reactions: Allergies Allergy/AdvReac Type Severity Reaction Status Date / Time No Known Allergies Allergy Verified 04/21/17 19:49 - Home Medications Home Medications: Ambulatory Orders Sulfamethoxazole/Trimethoprim [Bactrim Ds -] 1 tab PO DAILY 04/21/17 Family Disease History - Family Disease History Family Disease History: CA: Father ( prostate cancer 79), Mother ( colon cancer in her 80's) Other Family History: 10 siblings, all healthy Review of Systems - Review of Systems Constitutional: reports: No Symptoms Eyes: reports: No Symptoms HENT: reports: No Symptoms Neck: reports: No Symptoms Cardiovascular: reports: No Symptoms Respiratory: reports: No Symptoms Gastrointestinal: reports: Abdominal Pain, Indigestion Genitourinary: reports: No Symptoms Musculoskeletal: reports: No Symptoms Integumentary: reports: No Symptoms Neurological: reports: No Symptoms Endocrine: reports: No Symptoms Hematology/Lymphatic: reports: No Symptoms Psychiatric: reports: No Symptoms Physical Exam Vital Signs: Vital Signs Temperature 98.8 F 04/23/17 14:53 Pulse Rate 78 04/23/17 14:53 Respiratory Rate 20 04/23/17 14:53 Blood Pressure 137/81 04/23/17 14:53 O2 Sat by Pulse Oximetry (%) 98 04/23/17 13:50 Constitutional: Yes: Well Nourished, No Distress, Calm Eyes: Yes: Sclera Icterus HENT: Yes: Atraumatic Neck: Yes: Supple, Trachea Midline Cardiovascular: Yes: Regular Rate and Rhythm Respiratory: Yes: Regular, CTA Bilaterally Gastrointestinal: Yes: Normal Bowel Sounds, Soft Musculoskeletal: Yes: WNL Extremities: Yes: WNL Neurological: Yes: Alert, Oriented Psychiatric: Yes: Alert, Oriented Labs: CBC, BMP 04/23/17 07:00 04/23/17 07:00 Assessment/Plan Problem List - Problems (1) Pancreatitis due to biliary obstruction Code(s): K85.90 - ACUTE PANCREATITIS WITHOUT NECROSIS OR INFECTION, UNSP; K83.1 - OBSTRUCTION OF BILE DUCT Qualifiers: Chronicity: acute Acute pancreatitis complication: no infection or necrosis Qualified Code(s): K85.10 - Biliary acute pancreatitis without necrosis or infection (2) Calculus of gallbladder and bile duct with obstruction without cholecystitis Code(s): K80.71 - CALCULUS OF GB AND BILE DUCT W/O CHOLECYST W OBSTRUCTION (3) Obstructive jaundice Code(s): K83.8 - OTHER SPECIFIED DISEASES OF BILIARY TRACT (4) Cholestatic pruritus Code(s): L29.8 - OTHER PRURITUS (5) Nausea Code(s): R11.0 - NAUSEA (6) Duodenal ulcer without hemorrhage, perforation, or obstruction Code(s): K26.9 - DUODENAL ULCER, UNSP ACUTE OR CHRONIC, W/O HEMOR OR PERF plan very close watch for patient becoming septic will change abx to imipenam hydration rest as per primary team
--- NOTE | 2017-04-23 17:45 | PN ---
Teaching Attending Note Name of Resident: Jesus Cooper ATTENDING PHYSICIAN STATEMENT I saw and evaluated the patient. I reviewed the resident's note and discussed the case with the resident. I agree with the resident's findings and plan as documented. SUBJECTIVE:seen after ERCP no abd pain , no fever or chills. has no Abd pain OBJECTIVE: NAD , AAOx3 MMM, no LAP in neck . no facial droop, jaundiced sclera CV:RRR, NO MRG Lungs : CTAB Abd: soft , no Tenderness to deep palpation , liver is not palpated or percussed . NL BS Ext: no edema in upper or lower ext. DP 2+ b/l , RP 2+ b/l Assessment/Plan: 61 y/o gentleman with h/o nephrolithiasis and known cholelithiasis who presented with abd pain x 1 day prior to presentation . he was found to have acute pancreatitis 1- Acute gall stone pancreatitis: ERCP with sludge and small stones along with purulent drainage - cont Hydration - add D51/2 NS due to hypoglycemia - trend LFTS . - Lipas tomorrow - consult Dr. Browne. imepinem 2- ? recent diagnosis of UTI, UA and urine cx pending -on imepinem - will try obtain any urine cx/UA from PCP 3- Hyperlipidemia: LDL 114 ,10 yr risk for CAD per [place] risk score is 38.75 % qualify for statin treatment , but will hold off with his acute transaminitis 4- hold chemical DVT px due to sphencirectomy.
[2017-04-23] MEDS: IMIPENEM/CILASTATIN SODIUM 500 MG in SODIUM CHLORIDE 100 ML IVPB SCH ×2 (19:13→21:43)
[2017-04-23] MEDS: PANTOPRAZOLE 40 MG TABLET (FP) PO SCH (21:43)
[2017-04-24] MEDS ORDERED: LACTATED RINGERS SOLUTION 1,000 ML/1,000 ML INFUS.BAG IV SCH ×2 (01:30→13:51)
[2017-04-24] MEDS: IMIPENEM/CILASTATIN SODIUM 500 MG in SODIUM CHLORIDE 100 ML IVPB SCH ×4 (02:49→21:01)
--- NOTE | 2017-04-24 06:09 | PN ---
Physical Exam: SUBJECTIVE: Patient seen and examined at bedside, No acute events over night. Denies any fever, chills, N/V/D/C. denies any abdominal pain or pruritis . denies any chest pain or palpitation had BM last night , nnpo since mid night for cholecystectomy today. OBJECTIVE: Vital Signs Period Temp Pulse Resp BP Sys/Mccloud Pulse Ox Last 24 Hr 98.2 F-99 F 56-85 18-20 124-155/60-87 98-99 GENERAL: The patient is awake, alert, and fully oriented, in no acute distress. HEAD: Normal with no signs of trauma. EYES: sclera icteric, conjunctiva clear. ENT: moist mucous membranes. NECK: supple. LUNGS: Breath sounds equal, clear to auscultation bilaterally, no wheezes, no crackles, no accessory muscle use. HEART: Regular rate and rhythm, S1, S2 without murmur, rub or gallop. ABDOMEN: Soft, nontender, nondistended, normoactive bowel sounds, no guarding, no rebound,chanel - , liver not palpable. EXTREMITIES: 2+ pulses, warm, well-perfused, no edema. NEUROLOGICAL: , good mentation, no focal deficit , Normal speech, gait not observed. PSYCH: Normal mood, normal affect. SKIN: Warm, dry, icteric skin Laboratory Results - last 24 hr 04/22/17 04/23/17 04/23/17 07:30 07:00 07:00 WBC 8.4 RBC 4.38 Hgb 13.1 Hct 38.9 MCV 88.9 MCH 29.9 MCHC 33.7 RDW 13.9 Plt Count 178 MPV 9.8 Neutrophils % 77.9 Lymphocytes % 13.1 Monocytes % 7.2 Eosinophils % 1.4 Basophils % 0.4 Sodium 139 Potassium 3.7 Chloride 104 Carbon Dioxide 25 Anion Gap 10 BUN 8 Creatinine 0.6 L Creat Clearance w eGFR > 60 POC Glucometer Random Glucose 52 L D Hemoglobin A1c % Calcium 8.2 L Phosphorus 2.4 L Magnesium 1.1 L Total Bilirubin 17.0 H* D AST 7 L D ALT 207 H Alkaline Phosphatase 298 H C-Reactive Protein Total Protein 5.6 L Albumin 2.8 L Total Amylase Lipase Hep A IgM Ab Confirm Negative Hepatitis A Ab Total Positive H Hep Bs Antigen Negative Hep Bs Antibody Non reactive Hep B Core Total Ab Negative Hepatitis C Antibody <0.1 04/23/17 04/23/17 04/23/17 07:00 07:00 07:00 WBC RBC Hgb Hct MCV MCH MCHC RDW Plt Count MPV Neutrophils % Lymphocytes % Monocytes % Eosinophils % Basophils % Sodium Potassium Chloride Carbon Dioxide Anion Gap BUN Creatinine Creat Clearance w eGFR POC Glucometer Random Glucose Hemoglobin A1c % 4.4 L Calcium Phosphorus Magnesium Total Bilirubin AST ALT Alkaline Phosphatase C-Reactive Protein 6.0 H Total Protein Albumin Total Amylase 140 H D Lipase 614 H Hep A IgM Ab Confirm Hepatitis A Ab Total Hep Bs Antigen Hep Bs Antibody Hep B Core Total Ab Hepatitis C Antibody 04/23/17 13:08 WBC RBC Hgb Hct MCV MCH MCHC RDW Plt Count MPV Neutrophils % Lymphocytes % Monocytes % Eosinophils % Basophils % Sodium Potassium Chloride Carbon Dioxide Anion Gap BUN Creatinine Creat Clearance w eGFR POC Glucometer 72 Random Glucose Hemoglobin A1c % Calcium Phosphorus Magnesium Total Bilirubin AST ALT Alkaline Phosphatase C-Reactive Protein Total Protein Albumin Total Amylase Lipase Hep A IgM Ab Confirm Hepatitis A Ab Total Hep Bs Antigen Hep Bs Antibody Hep B Core Total Ab Hepatitis C Antibody Active Medications Generic Name Dose Route Start Last Admin Trade Name Freq PRN Reason Stop Dose Admin Hydromorphone HCl 0.5 mg 04/22/17 04:02 04/22/17 06:55 Dilaudid Injection - IVPB 0.5 mg Q6H PRN Administration PAIN Lactated Ringer's 1,000 ml in 1,000 mls @ 175 mls/hr 04/24/17 01:30 04/24/17 01:35 Lactated Ringers Solution IV 175 mls/hr ASDIR SENIA Administration Dextrose/Sodium Chloride 1,000 mls @ 75 mls/hr 04/23/17 13:30 04/23/17 16:37 D5-1/2ns - IV 75 mls/hr ASDIR SENIA Administration Imipenem/Cilastatin Sodium 500 100 mls @ 200 mls/hr 04/23/17 17:45 04/24/17 02:49 mg/ Sodium Chloride IVPB 200 mls/hr Q6H-IV SENIA Administration Protocol Ondansetron HCl 4 mg 04/22/17 00:45 04/22/17 02:03 Zofran Injection IVPUSH 4 mg Q6H PRN Administration NAUSEA Pantoprazole Sodium 40 mg 04/23/17 22:00 04/23/17 21:43 Protonix - PO 40 mg BID SENIA Administration CBC, BMP 04/24/17 06:00 04/24/17 06:00 Microbiology 04/22/17 00:20 Blood Culture - Preliminary Blood - Peripheral Venous NO GROWTH OBTAINED AFTER 48 HOURS, INCUBATION TO CONTINUE FOR 3 DAYS. 04/22/17 00:20 Blood Culture - Preliminary Blood - Peripheral Venous NO GROWTH OBTAINED AFTER 48 HOURS, INCUBATION TO CONTINUE FOR 3 DAYS. ASSESSMENT/PLAN: 61 yo M admitted to med-surg for acute pancreatitis. # Acute gallbladder stone Pancreatitis, * 2/2 post-hepatic CBD obstruction by gallstone * S/P MRCP result reviewed * S/P ERCP today with copious sludge and small stone fragments with small amount of purulence obtained from duct, sphincterotomy done, biliary stent left with small duodenal ulcer noted * surgery onboard schedulled for lap vs oppen cholecystectomy * f/u lipid profile and hep panel * Received flagyl 500mg x1 in ED, given zosyn 3.375g IVPB x 1 * ID on board started on Imipenem day 2 * Aggressive fluid resuscitation LR@250 cc/hr * D5w, 1/2 ns added due to hypoglycemia * Dilaudid 0.5mg Q4H PRN for pain control * Zofran for nausea * PPI added * NPO after med snight , colonoscopy tomorrow #Transminitis and Elevated bilirubin * Obstructive pattern liver chemistries: Elevated alk phos and direct bili * can not R/O acute hepatocellular injury: elevated AST and ALT, trend * CBC, CMP , Hep panel , H.pylori panel, Amylase, lipase , C reactive protien #small duodenal ulcer noted, * Protonic 40 mg Po BID * # Hyperlipidemia: * LDL 114 ,10 yr risk for CAD per [place] risk score is 38.75 % * qualify for statin treatment , but will hold off with his acute transaminitis #FEN * LR 250cc/hr, D5w /1/2ns added due to hypoglycemia * Replete lytes prn * NPO #Prophylaxis * DVT: SCDs, No hep due to sphinchtertomy. * GI: Protonix 40 mg po BID due to duodenal ulcer #Dispo * Admit to med surg * cholecystectomy today Visit type - Emergency Visit Emergency Visit: Yes ED Registration Date: 04/21/17 Care time: The patient presented to the Emergency Department on the above date and was hospitalized for further evaluation of their emergent condition. - New Patient This patient is new to me today: No - Critical Care Critical Care patient: No - Discharge Referral Referred to [facility] Med P.C.: No
[2017-04-24 08:10] LABS: INR 1.03 (0.82-1.09); PROTHROMBIN TIME (PATIENT) 11.6 SEC (9.98-11.88)
--- NOTE | 2017-04-24 08:14 | PN ---
Progress Note, Physician Chief Complaint: Pt day#1 s/p ERCP - Current Medication List Current Medications: Active Medications Hydromorphone HCl (Dilaudid Injection -) 0.5 mg IVPB Q6H PRN PRN Reason: PAIN Last Admin: 04/22/17 06:55 Dose: 0.5 mg Lactated Ringer's (Lactated Ringers Solution) 1,000 ml in 1,000 mls @ 175 mls/ hr IV ASDIR SENIA Last Admin: 04/24/17 01:35 Dose: 175 mls/hr Dextrose/Sodium Chloride (D5-1/2ns -) 1,000 mls @ 75 mls/hr IV ASDIR SENIA Last Admin: 04/23/17 16:37 Dose: 75 mls/hr Imipenem/Cilastatin Sodium 500 (mg/ Sodium Chloride) 100 mls @ 200 mls/hr IVPB Q6H-IV SENIA PRN Reason: Protocol Last Admin: 04/24/17 02:49 Dose: 200 mls/hr Ondansetron HCl (Zofran Injection) 4 mg IVPUSH Q6H PRN PRN Reason: NAUSEA Last Admin: 04/22/17 02:03 Dose: 4 mg Pantoprazole Sodium (Protonix -) 40 mg PO BID SENIA Last Admin: 04/23/17 21:43 Dose: 40 mg - Objective Vital Signs: Vital Signs Temperature 98.4 F 04/24/17 05:55 Pulse Rate 56 L 04/24/17 05:55 Respiratory Rate 20 04/24/17 05:55 Blood Pressure 124/87 04/24/17 05:55 O2 Sat by Pulse Oximetry (%) 98 04/23/17 21:00 Constitutional: Yes: Well Nourished, No Distress Labs: CBC, BMP 04/23/17 07:00 INR, PTT INR 0.99 (0.82-1.09) 04/22/17 00:20 Assessment/Plan Pt doing well s/p ERCP. No apparent anesthetic issues/complications. Continue current care
[2017-04-24 08:23] LABS: BASO % 0.3 % (0-2.0); EOS % 0.6 % (0-4.5); HEMATOCRIT 36.8 % (35.4-49); HEMOGLOBIN 12.3 GM/dL (11.7-16.9); LYMPH % 15.2 % (8-40); MCH 30.1 pg (25.7-33.7); MCHC 33.4 g/dl (32.0-35.9); MONO % 6.9 % (3.8-10.2); PLATELET COUNT 153 K/MM3 (134-434); RDW 14.2 % (11.9-15.9)
[2017-04-24 08:25] LABS: BLOOD UREA NITROGEN 10 mg/dL (7-18); CALCIUM 8.2 mg/dL (8.5-10.1); CHLORIDE 106 mmol/L (98-107); GLUCOSE,RANDOM 124 mg/dL (74-106); MAGNESIUM 2.3 mg/dL (1.8-2.4); POTASSIUM 4.1 mmol/L (3.5-5.1); SODIUM 140 mmol/L (136-145)
[2017-04-24 08:30] LABS: ALBUMIN 2.7 g/dl (3.4-5.0); ALK PHOS 262 U/L (45-117); AMYLASE 46 U/L (25-115); ANION GAP 7 (8-16); BILIRUBIN,DIRECT 5.2 mg/dL (0.0-0.2); BILIRUBIN,TOTAL 7.1 mg/dL (0.2-1.0); CO2 27 mmol/L (21-32); CREATININE 0.6 mg/dL (0.7-1.3); PHOSPHOROUS 2.4 mg/dL (2.5-4.9); SGOT/AST 52 U/L (15-37); SGPT/ALT 163 U/L (12-78); TOT PROT 5.5 g/dl (6.4-8.2)
[2017-04-24] MEDS ORDERED: PT OWN MED DRAWER 7, Y5N ONE ×3 (08:41→20:49)
[2017-04-24] MEDS: LACTATED RINGERS SOLUTION 1,000 ML/1,000 ML INFUS.BAG IV SCH ×2 (08:46→23:53)
[2017-04-24] MEDS: PANTOPRAZOLE 40 MG TABLET (FP) PO SCH ×2 (09:04→21:02)
[2017-04-24 09:22] LABS: LIPASE 384 U/L (73-393)
[2017-04-24] MEDS ORDERED: BUPIVACAINE HCL/PF 0.5% (5MG/ML) 10 ML VIAL ONE (10:14)
[2017-04-24] MEDS ORDERED: fentaNYL CITRATE 250 MCG/5 ML VIAL ONE (10:48)
[2017-04-24] MEDS ORDERED: MIDAZOLAM HCL 2 MG/2 ML SINGLE DOSE VIAL ONE (10:48)
[2017-04-24] MEDS ORDERED: ROCURONIUM BROMIDE 50 MG/5 ML VIAL ONE ×2 (10:48)
[2017-04-24] MEDS ORDERED: ePHEDrine SULFATE 50 MG/1 ML AMPULE ONE (11:24)
[2017-04-24] MEDS ORDERED: BUPIVACAINE HCL/PF 0.5% (5MG/ML) 10 ML VIAL IJ ONE (12:00)
--- NOTE | 2017-04-24 12:38 | PN ---
Progress Note, Physician History of Present Illness: post op stable - Current Medication List Current Medications: Active Medications Hydromorphone HCl (Dilaudid Injection -) 0.5 mg IVPB Q6H PRN PRN Reason: PAIN Last Admin: 04/22/17 06:55 Dose: 0.5 mg Lactated Ringer's (Lactated Ringers Solution) 1,000 ml in 1,000 mls @ 175 mls/ hr IV ASDIR SENIA Last Admin: 04/24/17 01:35 Dose: 175 mls/hr Dextrose/Sodium Chloride (D5-1/2ns -) 1,000 mls @ 75 mls/hr IV ASDIR SENIA Last Admin: 04/23/17 16:37 Dose: 75 mls/hr Imipenem/Cilastatin Sodium 500 (mg/ Sodium Chloride) 100 mls @ 200 mls/hr IVPB Q6H-IV SENIA PRN Reason: Protocol Last Admin: 04/24/17 08:42 Dose: 200 mls/hr Ondansetron HCl (Zofran Injection) 4 mg IVPUSH Q6H PRN PRN Reason: NAUSEA Last Admin: 04/22/17 02:03 Dose: 4 mg Pantoprazole Sodium (Protonix -) 40 mg PO BID SENIA Last Admin: 04/24/17 09:04 Dose: Not Given - Objective Vital Signs: Vital Signs Temperature 97.6 F 04/24/17 09:00 Pulse Rate 64 04/24/17 09:00 Respiratory Rate 20 04/24/17 09:00 Blood Pressure 147/90 04/24/17 09:00 O2 Sat by Pulse Oximetry (%) 98 04/24/17 09:00 Constitutional: Yes: No Distress, Calm Cardiovascular: Yes: Regular Rate and Rhythm Respiratory: Yes: Regular, CTA Bilaterally Musculoskeletal: Yes: WNL Extremities: Yes: WNL Wound/Incision: Yes: Clean/Dry Neurological: Yes: Alert, Oriented Labs: CBC, BMP 04/24/17 06:00 04/24/17 06:00 INR, PTT INR 1.03 (0.82-1.09) 04/24/17 06:00 Assessment/Plan Problem List - Problems (1) Pancreatitis due to biliary obstruction Code(s): K85.90 - ACUTE PANCREATITIS WITHOUT NECROSIS OR INFECTION, UNSP; K83.1 - OBSTRUCTION OF BILE DUCT Qualifiers: Chronicity: acute Acute pancreatitis complication: no infection or necrosis Qualified Code(s): K85.10 - Biliary acute pancreatitis without necrosis or infection (2) Calculus of gallbladder and bile duct with obstruction without cholecystitis Code(s): K80.71 - CALCULUS OF GB AND BILE DUCT W/O CHOLECYST W OBSTRUCTION (3) Obstructive jaundice Code(s): K83.8 - OTHER SPECIFIED DISEASES OF BILIARY TRACT (4) Cholestatic pruritus Code(s): L29.8 - OTHER PRURITUS (5) Nausea Code(s): R11.0 - NAUSEA (6) Duodenal ulcer without hemorrhage, perforation, or obstruction Code(s): K26.9 - DUODENAL ULCER, UNSP ACUTE OR CHRONIC, W/O HEMOR OR PERF plan continue abx will see how estrella does will discuss with surgery patient with stent will need abx coverage
[2017-04-24] MEDS ORDERED: NEOSTIGMINE METHYLSULFATE 0.5 MG/ML - 10 ML MDV ONE (12:59)
--- NOTE | 2017-04-24 13:41 | OP ---
Operative Note - Note: Operative Date: 04/24/17 Pre-Operative Diagnosis: gallstone pancreatitis, obstructive jaundice s/p ERCP w /sphincterotomy and stent Operation: laparoscopic cholecystectomy Findings: some omental adhesions, very large gallstone, enlarged cystic duct - critical view identified, XL Weck clips used, some bile spillage irrigated and suctioned Post-Operative Diagnosis: Same as Pre-op Surgeon: Sridhar Laguna Franchise Sales Manager: Bean Schwartz Anesthesiologist/ALLERGY NURSE: Eliseo Schulte (w/SUlises Link) Anesthesia: General, Local (20ml 0.5% marcaine) Specimens Removed: gallbladder to pathology Estimated Blood Loss (mls): 15 Fluid Volume Replaced (mls): 1,650 (crystalloid) Operative Report Dictated: Yes
[2017-04-24] MEDS ORDERED: ONDANSETRON 4 MG/2 ML VIAL IVPUSH PRN ×2 (13:44→14:04)
[2017-04-24] MEDS ORDERED: HYDROmorphone HCL CARPU-JECT 1 MG/1 ML DISP.SYRIN IVPUSH PRN (13:44)
[2017-04-24] MEDS ORDERED: LACTATED RINGERS SOLUTION 1,000 ML IV SCH (13:45)
[2017-04-24] MEDS ORDERED: IBUPROFEN 600 MG TABLET (FP) PO PRN ×3 (13:47→19:00)
[2017-04-24] MEDS ORDERED: ACETAMINOPHEN 325 MG TABLET (FP) PO PRN ×2 (13:47→14:04)
[2017-04-24] MEDS ORDERED: HYDROmorphone HCL CARPU-JECT 2 MG/1 ML DISP.SYRIN ONE (13:47)
[2017-04-24] MEDS ORDERED: oxyCODONE HCL 5 MG TABLET PO PRN ×2 (13:48→14:04)
[2017-04-24] MEDS ORDERED: HYDROmorphone HCL CARPU-JECT 2 MG/1 ML DISP.SYRIN IVPUSH ONE ×2 (13:50→14:24)
[2017-04-24] MEDS ORDERED: HYDROmorphone HCL CARPU-JECT 2 MG/1 ML DISP.SYRIN IVPB PRN ×2 (13:51→14:04)
[2017-04-24] MEDS ORDERED: NAPH,MB-DB/K PH,MBDB POWDER PACKET PO ONE ×2 (16:15→19:15)
--- NOTE | 2017-04-24 19:13 | PN ---
Teaching Attending Note Name of Resident: Eligio Crabtree ATTENDING PHYSICIAN STATEMENT I saw and evaluated the patient. I reviewed the resident's note and discussed the case with the resident. I agree with the resident's findings and plan as documented. SUBJECTIVE: No fever or chills. No abd pain. OBJECTIVE: NAD, AAOx3 MMM, no LAP in neck. no facial droop, jaundiced sclera CV: RRR, NO MRG Lungs: CTAB Abd: soft , no Tenderness to deep palpation , liver is not palpated or percussed . NL BS Ext: no edema in upper or lower ext. DP 2+ b/l , RP 2+ b/l Assessment/Plan: 61 y/o gentleman with h/o nephrolithiasis and known cholelithiasis who presented with abd pain x 1 day prior to presentation . he was found to have acute pancreatitis 1- Acute gall stone pancreatitis with ascending cholangitis s/p CCY POD 0 - cont IVF - advance diet - off d5 1/2 NS - replete electrolytes - cont ABx - LFTs improved 2- Hyperlipidemia: LDL 114 ,10 yr risk for CAD per [place] risk score is 38.75 % qualify for statin treatment , but will hold off with his acute transaminitis 4- hold chemical DVT px due to sphencirectomy. possible dc to home tomorrow if can switch to po abx
[2017-04-25] MEDS: IMIPENEM/CILASTATIN SODIUM 500 MG in SODIUM CHLORIDE 100 ML IVPB SCH ×4 (02:10→17:54)
[2017-04-25] MEDS: LACTATED RINGERS SOLUTION 1,000 ML/1,000 ML INFUS.BAG IV SCH (06:57)
--- NOTE | 2017-04-25 07:24 | PN ---
Teaching Attending Note Name of Resident: Eligio Crabtree ATTENDING PHYSICIAN STATEMENT I saw and evaluated the patient. I reviewed the resident's note and discussed the case with the resident. I agree with the resident's findings and plan as documented. SUBJECTIVE: Patient is comfortable with no acute distress, pain is there but very mild pain on the incision site. OBJECTIVE: Vital Signs Temperature 98.4 F 04/25/17 06:00 Pulse Rate 50 L 04/25/17 06:00 Respiratory Rate 20 04/25/17 06:00 Blood Pressure 137/57 04/25/17 06:00 O2 Sat by Pulse Oximetry (%) 97 04/24/17 22:00 CBCD WBC 8.0 K/mm3 (4.0-10.0) 04/24/17 06:00 RBC 4.10 M/mm3 (4.00-5.60) 04/24/17 06:00 Hgb 12.3 GM/dL (11.7-16.9) 04/24/17 06:00 Hct 36.8 % (35.4-49) 04/24/17 06:00 MCV 90.0 fl (80-96) 04/24/17 06:00 MCHC 33.4 g/dl (32.0-35.9) 04/24/17 06:00 RDW 14.2 % (11.9-15.9) 04/24/17 06:00 Plt Count 153 K/MM3 (134-434) 04/24/17 06:00 MPV 10.0 fl (7.5-11.1) 04/24/17 06:00 CMP Sodium 140 mmol/L (136-145) 04/24/17 06:00 Potassium 4.1 mmol/L (3.5-5.1) 04/24/17 06:00 Chloride 106 mmol/L (98-107) 04/24/17 06:00 Carbon Dioxide 27 mmol/L (21-32) 04/24/17 06:00 Anion Gap 7 (8-16) L 04/24/17 06:00 BUN 10 mg/dL (7-18) D 04/24/17 06:00 Creatinine 0.6 mg/dL (0.7-1.3) L 04/24/17 06:00 Creat Clearance w eGFR > 60 (>60) 04/24/17 06:00 Random Glucose 124 mg/dL (74-106) H D 04/24/17 06:00 Calcium 8.2 mg/dL (8.5-10.1) L 04/24/17 06:00 Total Bilirubin 7.1 mg/dL (0.2-1.0) H D 04/24/17 06:00 AST 52 U/L (15-37) H D 04/24/17 06:00 ALT 163 U/L (12-78) H D 04/24/17 06:00 Alkaline Phosphatase 262 U/L (45-117) H 04/24/17 06:00 Total Protein 5.5 g/dl (6.4-8.2) L 04/24/17 06:00 Albumin 2.7 g/dl (3.4-5.0) L 04/24/17 06:00 CARDIAC ENZYMES Creatine Kinase 360 IU/L (39-308) H 04/21/17 20:59 Troponin I 0.03 ng/ml (0.00-0.05) 04/21/17 20:59 Current Medications Generic Name Dose Route Start Last Admin Trade Name Freq PRN Reason Stop Dose Admin Acetaminophen 650 mg 04/24/17 14:04 Tylenol - PO Q6H PRN PAIN Hydromorphone HCl 0.5 mg 04/24/17 14:04 Dilaudid Injection - IVPB Q3H PRN SEVERE PAIN Imipenem/Cilastatin Sodium 500 100 mls @ 200 mls/hr 04/24/17 15:00 04/25/17 02:10 mg/ Sodium Chloride IVPB 200 mls/hr Q6H-IV SENIA Administration Protocol Lactated Ringer's 1,000 ml in 1,000 mls @ 150 mls/hr 04/24/17 14:04 04/25/17 06:57 Lactated Ringers Solution IV 150 mls/hr ASDIR SENIA Administration Ibuprofen 600 mg 04/24/17 19:00 04/24/17 23:56 Motrin - PO 600 mg Q6H PRN Administration PAIN Ondansetron HCl 4 mg 04/24/17 14:04 Zofran Injection IVPUSH Q6H PRN NAUSEA Oxycodone HCl 5 mg 04/24/17 14:04 Roxicodone - PO Q6H PRN BREAKTHROUGH PAIN Pantoprazole Sodium 40 mg 04/24/17 22:00 04/24/17 21:02 Protonix - PO 40 mg BID SENIA Administration Home Medications Medication Instructions Recorded Sulfamethoxazole/Trimethoprim 1 tab PO DAILY 04/21/17 [Bactrim Ds -] PE: NAD, AAOx3 CV: RRR, NO MRG Lungs: CTAB Abd: soft , NT, NR, NG, NL BS, positive for lap chol.with multiple incisions Ext: no edema in upper or lower ext. Assessment/Plan: Patient is a 61 y/o gentleman with h/o nephrolithiasis was admitted for acute pancreatitis # Acute gall stone pancreatitis with ascending cholangitis pod #2 for lap. chol. the last dose of IV antibiotic around 6 pm , will discharge the patient afterward. follow with surgeon in 2 weeks. will discharge patient home on po Augmentin as per ID x 12 days, take it with food. # Hyperlipidemia: LDL 114 ,will hold statin treatment since patient has acute transaminitis , can be started as an outpatient as per primary. # hold chemical DVT px due to sphencirectomy. discharge patient home today on oral antibiotic as per ID
[2017-04-25 08:03] LABS: HEMATOCRIT 36.9 % (35.4-49); HEMOGLOBIN 12.1 GM/dL (11.7-16.9); MCH 30.1 pg (25.7-33.7); MCHC 32.8 g/dl (32.0-35.9); MEAN CELL VOLUME 91.6 fl (80-96); MEAN PLT VOLUME 10.5 fl (7.5-11.1); PLATELET COUNT 183 K/MM3 (134-434); RBC 4.02 M/mm3 (4.00-5.60); RDW 14.6 % (11.9-15.9); WHITE BLOOD COUNT 10.7 K/mm3 (4.0-10.0)
[2017-04-25 08:29] LABS: CHLORIDE 105 mmol/L (98-107); POTASSIUM 4.1 mmol/L (3.5-5.1); SODIUM 140 mmol/L (136-145)
[2017-04-25 08:48] LABS: ALBUMIN 2.9 g/dl (3.4-5.0); ALK PHOS 242 U/L (45-117); ANION GAP 7 (8-16); BILIRUBIN,TOTAL 4.7 mg/dL (0.2-1.0); BLOOD UREA NITROGEN 16 mg/dL (7-18); CALCIUM 8.7 mg/dL (8.5-10.1); CO2 28 mmol/L (21-32); CREATININE 0.8 mg/dL (0.7-1.3); GLUCOSE,RANDOM 100 mg/dL (74-106); PHOSPHOROUS 3.1 mg/dL (2.5-4.9); SGOT/AST 79 U/L (15-37); SGPT/ALT 179 U/L (12-78); TOT PROT 6.1 g/dl (6.4-8.2)
[2017-04-25] MEDS: PANTOPRAZOLE 40 MG TABLET (FP) PO SCH (09:38)
[2017-04-25 09:41] LABS: LIPASE 872 U/L (73-393)
--- NOTE | 2017-04-25 10:17 | PN ---
Progress Note, Physician History of Present Illness: Pt with obstructive jaundice, gallstone pancreatitis, choledocholithiasis s/p ERCP with sphincterotomy and biliary stent, now s/p laparoscopic cholecystectomy. Feeling better, ambulating, voiding, tolerating diet. Noticeably less jaundiced. No itching or nausea. Incisional pain controlled with nonnarcotic oral meds. On Imipenem since just after ERCP per ID. Labs normalizing. - Current Medication List Current Medications: Active Medications Acetaminophen (Tylenol -) 650 mg PO Q6H PRN PRN Reason: PAIN Hydromorphone HCl (Dilaudid Injection -) 0.5 mg IVPB Q3H PRN PRN Reason: SEVERE PAIN Imipenem/Cilastatin Sodium 500 (mg/ Sodium Chloride) 100 mls @ 200 mls/hr IVPB Q6H-IV SENIA PRN Reason: Protocol Last Admin: 04/25/17 08:34 Dose: 200 mls/hr Lactated Ringer's (Lactated Ringers Solution) 1,000 ml in 1,000 mls @ 150 mls/ hr IV ASDIR SENIA Last Admin: 04/25/17 06:57 Dose: 150 mls/hr Ibuprofen (Motrin -) 600 mg PO Q6H PRN PRN Reason: PAIN Last Admin: 04/24/17 23:56 Dose: 600 mg Ondansetron HCl (Zofran Injection) 4 mg IVPUSH Q6H PRN PRN Reason: NAUSEA Oxycodone HCl (Roxicodone -) 5 mg PO Q6H PRN PRN Reason: BREAKTHROUGH PAIN Pantoprazole Sodium (Protonix -) 40 mg PO BID [facility] Last Admin: 04/25/17 09:38 Dose: 40 mg - Objective Vital Signs: Vital Signs Temperature 98.4 F 04/25/17 06:00 Pulse Rate 50 L 04/25/17 06:00 Respiratory Rate 20 04/25/17 06:00 Blood Pressure 137/57 04/25/17 06:00 O2 Sat by Pulse Oximetry (%) 97 04/24/17 22:00 Constitutional: Yes: Well Nourished, No Distress, Calm Eyes: Yes: EOM Intact, Sclera Icterus (mild - less than previously) HENT: Yes: Atraumatic, Normocephalic Gastrointestinal: Yes: Soft, Abdomen, Obese, Tenderness (mild incisional, mainly umbilical, no sig abdominal tenderness) Extremities: No: Cool, Cyanosis Integumentary: Yes: Incision (x4 dressed), Jaundice (much less - nearly resolved ). No: Rash Wound/Incision: Yes: Steri Strips (under dressings), Dressing Dry and Intact (x3 , umbilical with some pink staining on gauze under tegaderm) Neurological: Yes: Alert, Oriented Labs: CBC, BMP 04/25/17 07:32 04/25/17 07:32 CMP Sodium 140 mmol/L (136-145) 04/25/17 07:32 Potassium 4.1 mmol/L (3.5-5.1) 04/25/17 07:32 Chloride 105 mmol/L (98-107) 04/25/17 07:32 Carbon Dioxide 28 mmol/L (21-32) 04/25/17 07:32 Anion Gap 7 (8-16) L 04/25/17 07:32 BUN 16 mg/dL (7-18) D 04/25/17 07:32 Creatinine 0.8 mg/dL (0.7-1.3) D 04/25/17 07:32 Creat Clearance w eGFR > 60 (>60) 04/25/17 07:32 Random Glucose 100 mg/dL (74-106) 04/25/17 07:32 Calcium 8.7 mg/dL (8.5-10.1) 04/25/17 07:32 Phosphorus 3.1 mg/dL (2.5-4.9) D 04/25/17 07:32 Total Bilirubin 4.7 mg/dL (0.2-1.0) H D 04/25/17 07:32 AST 79 U/L (15-37) H D 04/25/17 07:32 ALT 179 U/L (12-78) H 04/25/17 07:32 Alkaline Phosphatase 242 U/L (45-117) H 04/25/17 07:32 Total Protein 6.1 g/dl (6.4-8.2) L 04/25/17 07:32 Albumin 2.9 g/dl (3.4-5.0) L 04/25/17 07:32 Lipase 872 U/L (73-393) H 04/25/17 07:32 lipase up a bit (anticipated) bili down from 7 LFTs slightly up and down, essentially stable wbc slightly up postop as anticipated Problem List - Problems (1) Pancreatitis due to biliary obstruction Assessment/Plan: POD1 s/p lap nba with very large stone in gallbladder doing well ambulating, voiding, tolerating diet, on po nonnarcotic pain meds ok to stop IVF Code(s): K85.90 - ACUTE PANCREATITIS WITHOUT NECROSIS OR INFECTION, UNSP; K83.1 - OBSTRUCTION OF BILE DUCT Qualifiers: Chronicity: acute Acute pancreatitis complication: no infection or necrosis Qualified Code(s): K85.10 - Biliary acute pancreatitis without necrosis or infection (2) Calculus of gallbladder and bile duct with obstruction without cholecystitis Assessment/Plan: will change umbilical dressing antibiotics per ID - can likely change to oral later today and d/c home biliary stent in place, LFTs correcting postop instructions in d/c plan pt to use OTC tylenol and ibuprofen for pain prn, no need for narcotic Rx f/u in 2 weeks Code(s): K80.71 - CALCULUS OF GB AND BILE DUCT W/O CHOLECYST W OBSTRUCTION (3) Obstructive jaundice Assessment/Plan: s/p ERCP with sphincterotomy and biliary stent will f/u with GI for stent removal as per them Code(s): K83.8 - OTHER SPECIFIED DISEASES OF BILIARY TRACT (4) Duodenal ulcer without hemorrhage, perforation, or obstruction Assessment/Plan: noted at ERCP on PPI per GI, continue PPI daily on discharge will f/u with GI for H. pylori result Code(s): K26.9 - DUODENAL ULCER, UNSP ACUTE OR CHRONIC, W/O HEMOR OR PERF (5) Cholestatic pruritus Assessment/Plan: resolved Code(s): L29.8 - OTHER PRURITUS (6) Nausea Assessment/Plan: resolved Code(s): R11.0 - NAUSEA
[2017-04-25] MEDS ORDERED: PT OWN MED DRAWER 7, Y5N ONE (14:50)
--- NOTE | 2017-04-25 15:14 | PN ---
Progress Note, Physician History of Present Illness: post op stable no complaints - Current Medication List Current Medications: Active Medications Acetaminophen (Tylenol -) 650 mg PO Q6H PRN PRN Reason: PAIN Imipenem/Cilastatin Sodium 500 (mg/ Sodium Chloride) 100 mls @ 200 mls/hr IVPB Q6H-IV SENIA PRN Reason: Protocol Last Admin: 04/25/17 14:54 Dose: 200 mls/hr Ibuprofen (Motrin -) 600 mg PO Q6H PRN PRN Reason: PAIN Last Admin: 04/24/17 23:56 Dose: 600 mg Ondansetron HCl (Zofran Injection) 4 mg IVPUSH Q6H PRN PRN Reason: NAUSEA Pantoprazole Sodium (Protonix -) 40 mg PO BID SENIA Last Admin: 04/25/17 09:38 Dose: 40 mg - Objective Vital Signs: Vital Signs Temperature 98.2 F 04/25/17 13:37 Pulse Rate 68 04/25/17 13:37 Respiratory Rate 20 04/25/17 09:00 Blood Pressure 137/73 04/25/17 13:37 O2 Sat by Pulse Oximetry (%) 97 04/25/17 09:00 Constitutional: Yes: No Distress, Calm Cardiovascular: Yes: Regular Rate and Rhythm Respiratory: Yes: Regular, CTA Bilaterally Gastrointestinal: Yes: Normal Bowel Sounds, Soft Musculoskeletal: Yes: WNL Extremities: Yes: WNL Neurological: Yes: Alert, Oriented Psychiatric: Yes: Alert, Oriented Labs: CBC, BMP 04/25/17 07:32 04/25/17 07:32 INR, PTT INR 1.03 (0.82-1.09) 04/24/17 06:00 Assessment/Plan Problem List - Problems (1) Pancreatitis due to biliary obstruction Code(s): K85.90 - ACUTE PANCREATITIS WITHOUT NECROSIS OR INFECTION, UNSP; K83.1 - OBSTRUCTION OF BILE DUCT Qualifiers: Chronicity: acute Acute pancreatitis complication: no infection or necrosis Qualified Code(s): K85.10 - Biliary acute pancreatitis without necrosis or infection (2) Calculus of gallbladder and bile duct with obstruction without cholecystitis Code(s): K80.71 - CALCULUS OF GB AND BILE DUCT W/O CHOLECYST W OBSTRUCTION (3) Obstructive jaundice Code(s): K83.8 - OTHER SPECIFIED DISEASES OF BILIARY TRACT (4) Cholestatic pruritus Code(s): L29.8 - OTHER PRURITUS (5) Nausea Code(s): R11.0 - NAUSEA (6) Duodenal ulcer without hemorrhage, perforation, or obstruction Code(s): K26.9 - DUODENAL ULCER, UNSP ACUTE OR CHRONIC, W/O HEMOR OR PERF plan finish iv abx tonights course then can switch to oral augmentin 875mg bid for 12 more days
--- NOTE | 2017-04-25 17:10 | DS ---
Physical Exam: SUBJECTIVE: Patient seen and examined at bedside, No acute events over night. Denies any fever, chills, N/V/D/C. denies any abdominal pain or pruritis . denies any chest pain or palpitation had BM last night ,S/P cholecystectomy. OBJECTIVE: Vital Signs Period Temp Pulse Resp BP Sys/Mccloud Pulse Ox Last 24 Hr 97.8 F-98.4 F 50-80 20-20 137-146/57-86 97-97 PHYSICAL EXAM GENERAL: The patient is awake, alert, and fully oriented, in no acute distress. HEAD: Normal with no signs of trauma. EYES: sclera icteric, conjunctiva clear. ENT: moist mucous membranes. NECK: supple. LUNGS: Breath sounds equal, clear to auscultation bilaterally, no wheezes, no crackles, no accessory muscle use. HEART: Regular rate and rhythm, S1, S2 without murmur, rub or gallop. ABDOMEN: Soft, nontender, nondistended, normoactive bowel sounds, no guarding, 3 surgery incision clean without drainage and cover with gauze. EXTREMITIES: 2+ pulses, warm, well-perfused, no edema. NEUROLOGICAL: , good mentation, no focal deficit , Normal speech, gait not observed. PSYCH: Normal mood, normal affect. SKIN: Warm, dry, LABS Laboratory Results - last 24 hr 04/25/17 04/25/17 07:32 07:32 WBC 10.7 H D RBC 4.02 Hgb 12.1 Hct 36.9 MCV 91.6 MCH 30.1 MCHC 32.8 RDW 14.6 Plt Count 183 MPV 10.5 Sodium 140 Potassium 4.1 Chloride 105 Carbon Dioxide 28 Anion Gap 7 L BUN 16 D Creatinine 0.8 D Creat Clearance w eGFR > 60 Random Glucose 100 Calcium 8.7 Phosphorus 3.1 D Total Bilirubin 4.7 H D AST 79 H D ALT 179 H Alkaline Phosphatase 242 H Total Protein 6.1 L Albumin 2.9 L Lipase 872 H HOSPITAL COURSE: Date of Admission:04/21/17 Date of Discharge: 04/25/17 Mr Mabry is a 61 yo M admitted to med-surg for acute pancreatitis secondary to choledocholithiasis with ascending cholangitis .was confirmed on abdomen US and ct scan, MRCP and ERCP was done which shows copious sludge and small stone fragments with small amount of purulence obtained from duct, sphincterotomy done, biliary stent left with small duodenal ulcer noted. on 04/24 labaroscopic cholecystectomy was performed with no complication, pt today is tolerating regular food and had bowel movement. pt Received flagyl 500mg x1 in ED, zosyn 3.375g IVPB x 1 ,ID on board started on Imipenem for 3 days and he will be send home with another 12 days of Augmentin.pt was tretaed with Aggressive fluid resuscitation of RL . he developed episodes of hypoglycemia of 50 and was given D5w, 1/2 ns. Dilaudid was given for pain and 0.5mg Q4H PRN for pain control,Zofran for nausea. pt had Transminitis and Elevated bilirubin,Obstructive pattern liver chemistries , Elevated alk phos and direct bili, hep panel was negative likely 2/2 choledocholithiais improved after surgery, and also was found to have small duodenal ulcer noted ,tretaed with Protonic 40 mg Po BID , he will follow up as out patient with to repeat [facility] lab and follow on the duodenal ulcer.pt had Hyperlipidemia: LDL 114 ,10 yr risk for CAD per [place] risk score is 38.75 %,qualify for statin treatment , but will hold off with his acute transaminitis and can f/u with his PCP for HLD. electrolytes was replinished , scds used for DVTs proph. pt is hemodynamically stable and will be DC home. Minutes to complete discharge: 40 Discharge Summary Reason For Visit: ACUTE GALLSTONE PANCREATITIS Current Active Problems Acute gallstone pancreatitis (Acute) Calculus of gallbladder and bile duct with obstruction without cholecystitis ( Acute) Calculus of gallbladder with biliary obstruction but without cholecystitis ( Acute) Cholestatic pruritus (Acute) Duodenal ulcer without hemorrhage, perforation, or obstruction (Acute) Nausea (Acute) Obstructive jaundice (Acute) Pancreatitis due to biliary obstruction (Acute) Pruritus (Acute) Condition: Stable - Instructions Diet, Activity, Other Instructions: Postoperative instructions: You had a laparoscopic cholecystectomy on 04/24/[address] Sridhar Laguna of [facility]. Activity: Resume your usual activities gradually, but no heavy exertion or lifting more than 10-15 pounds for 1 month. Remove dressings 48 hours after surgery; sticky tapes underneath will fall off by themselves. You may shower daily starting then, just pat the incision areas dry. No bath or swimming until skin incisions are healed. Eat lightly at first, but advance to your usual diet as tolerated. Pain: For pain, you may use and alternate Tylenol (acetaminophen) and/or ibuprofen every 6 hours each as needed; this means that you can take one OR the other at 3-hour intervals. (If you are prescribed a Tylenol/narcotic combination for severe pain, use it instead of plain Tylenol as needed and switch back when your pain starts decreasing.) Do not take more than 3000mg of acetaminophen in a day. Take medications as prescribed or indicated on the labeling. Follow-up: Call Dr. Laguna's office at [phone] to make your postop appointment (Sunday ~2 weeks after surgery). Surgery clinic is held in the [facility] on the first floor of [facility]. Call Dr. Laguna's office if you have: * increasing pain not responsive to pain medication * fever of 101F or higher * vomiting * unusual or increasing bleeding or drainage from wounds * increasing redness or swelling at wound sites Also, see your primary medical doctor within 1-2 weeks. Take all antibiotics as prescribed. Also take the antacid medication as prescribed and follow up with Gastroenterology (GI) as instructed. You also had an ERCP with sphincterotomy and biliary stent placement by Dr. Macario on . Make an appointment to follow up with Dr. Artem Navarro, telephone operator chief. Referrals: Sridhar Laguna MD [Staff Physician] - 2 Weeks Artem Navarro MD [Staff Physician] - 1 Week Lindsey Kothari [Primary Care Provider] - Disposition: HOME - Home Medications Comprehensive Discharge Medication List: Ambulatory Orders Amox-Tr/K Cl [Augmentin - 875Mg Tablet] 1 tab PO BID #24 tablet 04/25/17 This patient is new to me today: No Emergency Visit: Yes ED Registration Date: 04/21/17 Care time: The patient presented to the Emergency Department on the above date and was hospitalized for further evaluation of their emergent condition. Critical Care patient: No - Discharge Referral Referred to [facility] No
[2017-04-25 17:45] VITALS: BP 148/81; PULSE 65; TEMP 98
--- NOTE | 2017-04-26 08:28 | OP ---
DATE OF OPERATION: 04/24/2017 PREOPERATIVE DIAGNOSES: Gallstone pancreatitis and obstructive jaundice ( status post endoscopic retrograde cholangiopancreatography with sphincterotomy and stent). POSTOPERATIVE DIAGNOSES: Gallstone pancreatitis and obstructive jaundice ( status post endoscopic retrograde cholangiopancreatography with sphincterotomy and stent). PROCEDURE: Laparoscopic cholecystectomy. SURGEON: Sridhar Laguna MD REVERSE LOGISTICS ANALYST: Bean Schwartz MD ANESTHESIA: General endotracheal and local, 20 mL of 0.5% Marcaine. ESTIMATED BLOOD LOSS: 15 mL. FLUIDS: Crystalloid, 1650 mL. SPECIMEN: Gallbladder to Pathology. FINDINGS: Some omental adhesions. Gallbladder with a very large gallstone in it and an enlarged cystic duct. The critical view was identified. Extra-large Weck clips were used on the cystic duct and some bile spillage was irrigated and suctioned. DISPOSITION: Stable and extubated to PACU. INDICATIONS FOR PROCEDURE: The patient is a 61-year-old male with a history of cholelithiasis first discovered last summer on a CT scan done for renal stone , but no other medical or surgical history, who presented to the emergency room with 1 week of intermittent epigastric and right upper quadrant pain associated with nausea, anorexia, dark urine, nurse esthetician stool and jaundice. He had been taking Bactrim for a urinary tract infection diagnosed by a doctor at a clinic on Sunday and had an appointment upcoming with Gastroenterology, but his pain persisted. He began having generalized itching and eventually 1 episode of diarrhea as well and came into the ER for evaluation. He had a normal white count, marked jaundice and elevated LFTs with a bilirubin of 12 as well as elevated amylase to 1450 and lipase 28,000 with a urine showing positive bilirubin but no infection. He was admitted to Medicine, started on antibiotics and fluids, kept n.p.o. and an MRCP with contrast was done, which showed distal common bile duct with multiple stones and sludge in it and ductal dilation to 1.2 cm. GI yesterday performed ERCP with findings of copious sludge and some purulence out the duct. They did a generous sphincterotomy and placed a biliary stent, and his bilirubin which peaked at 17 is now down to 7. The rest of his labs have begun normalizing. He had been changed to imipenem yesterday after the ERCP and today presents for cholecystectomy. Risks, benefits and alternatives of laparoscopic, possible open cholecystectomy were discussed with the patient, including, but not limited to, bleeding, infection, injury to adjacent structures, bile leak or ductal injury, intraabdominal abscess, hernia, need for further procedures and alternatives inclusive of antibiotics and delayed or no surgery with attendant risks of sepsis recurrence and worsening cholangitis. The patient is agreeable to the procedure and has signed informed consent. OPERATIVE TECHNIQUE: The patient was brought to the operating room and laid supine on the operating table. Sequential compression devices were applied to bilateral lower extremities. The patient's abdominal hair had been clipped in the holding area. After induction and intubation by Anesthesia, the patient's abdomen was prepped and draped in sterile fashion. A small supraumbilical midline incision was made with a scalpel and carried into subcutaneous tissues with electrocautery, until the abdominal wall fascia was identified, scored and elevated with Andres clamps. The peritoneum was entered bluntly with the tip of a clamp, and a finger inserted into the abdominal cavity to ensure entry through the peritoneum and the absence of any underlying adhesions. A stay suture of 0 Vicryl was then placed in the fascia in figure-of-8 fashion for later closure, and the Kerrie trocar introduced directly into the abdominal cavity and secured in place with the balloon. The abdomen was insufflated with carbon dioxide. The patient was placed in reverse Trendelenburg position with the right side planed upward, and the laparoscope was inserted to inspect the abdominal cavity. The edge of the gallbladder was visible at the edge of the liver with some overlying omentum. A 5-mm port was placed in the subxiphoid area under direct vision, and a grasper was used to begin peeling the omentum down where it was adhesed to the front of the gallbladder. Two additional 5-mm ports were then placed in the right upper quadrant, through which 1 grasper was used to grasp the fundus of the gallbladder and elevate it over the liver edge. A 2nd grasper was used to grasp the infundibulum of the gallbladder and use it for traction, as some of the remaining adhesions were peeled down with the Maryland dissector from the subxiphoid port. Once the base of the gallbladder had been exposed, the [place] dissector was used to continue dissection of the peritoneum to expose the cystic duct and artery. Hook cautery was used in some areas to begin dissecting the peritoneum off the medial and lateral sides of the gallbladder at the base. The suction velvet steamer was also hooked up and periodically used to irrigate the field and suction fluid and blood from the area. The cystic duct was isolated and identified with the critical view showing that it was the only structure directly entering the gallbladder from medial and lateral sides, and the [place] dissector was able to get a window all the way around and behind it. It was noted to be quite enlarged, and the medium-sized Weck clips would not fit all the way around the duct. Thus, the subxiphoid port was upsized to a 10-mm port. Prior to finalizing the upsizing, however, the cystic artery was also isolated out and identified medial to the cystic duct, and the medium-sized Weck locking clips were used, 2 proximally and 1 distally, before the artery was divided with endoscissors between the clips. Once the subxiphoid port was upsized, the extra-large Weck locking clips were introduced and applied to the cystic duct, 2 proximally and 1 distally, and it was divided between these with endoscissors. The hook cautery was then used to continue taking the gallbladder off of the liver bed. At one point toward the base of the gallbladder, the bag was entered, with some spillage of muddy sludge which looked similar to some of the sludge that had been obtained at ERCP. There was no purulence identified coming from the gallbladder itself. There were also no significant stone fragments spilled. The suction velvet steamer was used again to periodically suction as well as irrigate and suction the bile spill, both at this time and prior to the end of the procedure. The infundibular grasper was repositioned to help keep this hole closed as dissection continued, and the hook cautery was ultimately used to completely separate the gallbladder from the liver bed. At this point, the camera was switched to the subxiphoid port and the gallbladder placed in an EndoCatch bag through the umbilical port and retrieved out this site, with some stretching of the fascia and peritoneum with a large Eliza clamp, as an extraordinarily large stone was noted to be palpated in the gallbladder after final retrieval corresponding to the stone seen on imaging. This was passed off for a pathology specimen, and the Kerrie trocar and pneumoperitoneum reestablished. The camera was then reinserted into the umbilical port, the operative field inspected for hemostasis, where no active bleeding was noted coming from the liver bed. Several clots were irrigated off the area and retrieved with the suction velvet steamer. The field was copiously irrigated with saline and all reachable fluid was suctioned with the tool. The patient was leveled out back to neutral position, and the omentum tucked into the operative area. All other ports were removed under direct vision. The Kerrie and camera were then removed, and the abdomen exsufflated of carbon dioxide. The stay suture at the umbilicus was tied to close the fascia there. Hemostasis was achieved in the port sites with electrocautery where necessary, and skin was closed with 4-0 Vicryl subcuticular sutures, including running stitches at the subxiphoid and umbilical sites. Local anesthetic was also injected prior to final closure into all the port sites. Benzoin and Steri-Strips were applied to each of the sites, and dressings of gauze and Tegaderm were applied over these. Counts were correct at the end of the procedure. The patient was then awakened and extubated by Anesthesia, moved back to a stretcher and taken to the recovery room in stable condition, having tolerated the procedure well. Dr. Schwartz was an essential health center assistant from entry into the abdominal cavity, to retraction and manipulation of the gallbladder, as well as helping to ensure hemostasis at the conclusion and close some of the skin ports. Sridhar Laguna M.D. [id number] MTDD
--- NOTE | 2017-05-01 13:51 | PATH ---
Surgical Pathology Report Patient Name: BRITTNY MARTE [facility]. Rec. #: [id number] /Age/Gender: 1955 (Age: 61) / M Account: [id number] Location: [address] [place] [address] Taken: 04/24/2017 Received: 04/25/2017 Reported: 05/01/2017 Physicians: Camacho Jimenes M.D. Specimen(s) Received GALLBLADDER Clinical History Gallstone pancreatitis, obstructive jaundice Final Diagnosis GALLBLADDER, LAPAROSCOPIC CHOLECYSTECTOMY: CHRONIC CHOLECYSTITIS AND CHOLELITHIASIS. Electronically Signed Sindi Aranda M.D. Gross Description Received in formalin, labeled "gallbladder," is a 9.4 x 3.4 x 3.3 cm. gallbladder with a 0.2 cm. in length portion of cystic duct attached. The outer surface is garcia-neff with a focal defect and varies from smooth to shaggy. The lumen contains brown, sludgelike bile as well as a 5.3 cm greatest dimension brown, ovoid cholelith. The mucosa is garcia and focally eroded. The wall of the gallbladder ranges from 0.1-0.4 cm. in thickness. Engineering Technical Analyst sections are submitted in one cassette. 04/25/201704/25/2017
== END 2017-04-25 18:46 | disposition home or self-care (01) | DRG 418 ==
LOC: JER 19:41 → JERBED 23:39 → UNDOADMIN 23:54 → JERBED 23:54 → J6S 04-22 03:17
PROVIDERS: ADMIT Internal Medicine; ATTEND Internal Medicine
PROC: 0DNU4ZZ Release Omentum, Percutaneous Endoscopic Approach (ICD-10-PCS; 2017-04-23)
PROC: 0FC98ZZ Extirpation of Matter from Common Bile Duct, Via Natural or Artificial Opening Endoscopic (ICD-10-PCS; 2017-04-23)
PROC: 0F798DZ Dilation of Common Bile Duct with Intraluminal Device, Via Natural or Artificial Opening Endoscopic (ICD-10-PCS; 2017-04-23)
PROC: 0FT44ZZ Resection of Gallbladder, Percutaneous Endoscopic Approach (ICD-10-PCS; principal; 2017-04-24 11:00)
DX: K85.10 Biliary acute pancreatitis without necrosis or infection (principal); K80.71 Calculus of gallbladder and bile duct without cholecystitis with obstruction; Z87.891 Personal history of nicotine dependence; K26.9 Duodenal ulcer, unspecified as acute or chronic, without hemorrhage or perforation; E78.5 Hyperlipidemia, unspecified; L29.9 Pruritus, unspecified; K66.0 Peritoneal adhesions (postprocedural) (postinfection)
CPT/HCPCS: 36415; 74182-TC; 76000-TC-FY; 76705-TC; 80048; 80053; 80061; 80076; 81003; 82150; 82248; 82550; 82553; 82962; 83036; 83690; 83721; 83735; 84100; 84484; 85025; 85027; 85610; 86140; 86704; 86706; 86708; 86803; 86850; 86900; 86901; 87040; 87086; 87338; 87340; 88304-TC; 93005; 93010; 94760; 99283-25; J1100

== ENCOUNTER 2017-08-17 10:26 | Day surgery (SDC) | payer BC, OTHER ==
[2017-08-16 12:10] VITALS: BMI 35.4
[2017-08-17] MEDS ORDERED: SUCCINYLCHOLINE CHLORIDE 200 MG/10 ML VIAL ONE (13:03)
[2017-08-17] MEDS ORDERED: PROPOFOL 20 ML ONE ×4 (13:03→13:23)
[2017-08-17] MEDS ORDERED: ROCURONIUM BROMIDE 50 MG/5 ML VIAL ONE (13:03)
[2017-08-17] MEDS ORDERED: ONDANSETRON 4 MG/2 ML VIAL ONE (13:04)
[2017-08-17] MEDS ORDERED: DEXAMETHASONE SOD PHOSPHATE 10 MG/1 ML VIAL ONE (13:05)
[2017-08-17] MEDS ORDERED: ceFAZolin SODIUM 1 GM VIAL ONE (13:19)
[2017-08-17] MEDS ORDERED: DESFLURANE GAS 240 ML BOTTLE IH ONE (13:23)
[2017-08-17] MEDS ORDERED: IOHEXOL 300 MG/ML INFUS..BTL IJ ONE (13:35)
[2017-08-17] MEDS ORDERED: NEOSTIGMINE METHYLSULFATE 0.5 MG/ML - 10 ML MDV ONE (13:40)
[2017-08-17] MEDS ORDERED: GLYCOPYRROLATE 0.2 MG/1 ML VIAL ONE ×4 (13:40)
[2017-08-17 14:43] VITALS: TEMP 98.2
[2017-08-17 15:14] VITALS: BP 117/58; PULSE 56
--- NOTE | 2017-08-22 11:49 | PATH ---
Surgical Pathology Report Patient Name: BRITTNY MARTE [facility]. Rec. #: [id number] /Age/Gender: 1955 (Age: 62) / M Account: [id number] Location: [facility]-ENDOSCOPY Taken: 08/17/2017 Received: 08/21/2017 Reported: 08/22/2017 Physicians: Erika Macario M.D. Specimen(s) Received OLD STENT Clinical History Choledocholithiasis Final Diagnosis OLD STENT: SEGMENT OF STENT, GROSS EXAMINATION ONLY. Electronically Signed Cleopatra Quintero M.D. Gross Description Received fresh labeled "old stent," is a 15 cm in length blue, coiled portion of tubing, consistent with a biliary stent. No soft tissue is present. No sections are submitted, gross only. /08/21/2017 saudi08/21/2017
== END 2017-08-17 15:25 | disposition home or self-care (01) ==
LOC: JASU-ENDO 10:26
PROVIDERS: ATTEND Internal Medicine Gastroenterology
PROC: 0FPB8DZ Removal of Intraluminal Device from Hepatobiliary Duct, Via Natural or Artificial Opening Endoscopic (ICD-10-PCS; 2017-08-17)
PROC: 0FC98ZZ Extirpation of Matter from Common Bile Duct, Via Natural or Artificial Opening Endoscopic (ICD-10-PCS; principal; 2017-08-17 12:00)
DX: K80.50 Calculus of bile duct without cholangitis or cholecystitis without obstruction (principal)
CPT/HCPCS: 76000-TC-FY; 88300-TC; J1100

== ENCOUNTER 2018-05-19 20:27 | Emergency (ER) | payer BC, OTHER ==
[2018-05-19 20:38] VITALS: BP 151/93; PULSE 71; TEMP 98.5; BMI 34.4
--- NOTE | 2018-05-19 21:43 | PDOC ---
History of Present Illness - General Chief Complaint: Nasal Bleeding Stated Complaint: NOSE BLEED Time Seen by Provider: 05/19/18 21:02 Past History - Past Medical History Allergies/Adverse Reactions: Allergies Allergy/AdvReac Type Severity Reaction Status Date / Time No Known Allergies Allergy Verified 04/21/17 19:49 Home Medications: Ambulatory Orders Oxymetazoline 0.05% Nasal Soln [Afrin -] 1 spray NS BID #1 bottle 05/19/18 Anemia: No Asthma: No Cancer: No Cardiac Disorders: No CVA: No COPD: No GI Disorders: Yes (DUODENAL ULCER;COLON POLYPS;CBD STONES) Disorders: Yes - Surgical History Abdominal Surgery: No Appendectomy: No Cardiac Surgery: No Cholecystectomy: Yes - Immunization History Immunization Up to Date: Yes - Suicide/Smoking/Psychosocial Hx Smoking History: Never smoked Have you smoked in the past 12 months: No If you are a former smoker, when did you quit?: 10yrs ago - 1/2 ppd x 30-35 years Information on smoking cessation initiated: No Hx Alcohol Use: No Drug/Substance Use Hx: No Substance Use Type: None Hx Substance Use Treatment: No Review of Systems - Review of Systems Able to Perform ROS?: Yes Comments:: 05/19/18 21:40 CONSTITUTIONAL: Absent: fever, chills, diaphoresis, generalized weakness, malaise, loss of appetite HEENT: Absent: rhinorrhea, nasal congestion, throat pain, throat swelling, difficulty swallowing, mouth swelling, ear pain, eye pain, visual Changes CARDIOVASCULAR: Absent: chest pain, loss of consciousness, palpitations, irregular heart rate, peripheral edema RESPIRATORY: Absent: cough, shortness of breath, dyspnea with exertion, orthopnea, wheezing, stridor, hemoptysis GASTROINTESTINAL: Absent: abdominal pain, abdominal distension, nausea, vomiting, diarrhea, constipation, melena, hematochezia GENITOURINARY: Absent: dysuria, frequency, urgency, hesitancy, hematuria, flank pain, genital pain MUSCULOSKELETAL: Absent: myalgia, arthralgia, joint swelling SKIN: Absent: rash, itching, pallor HEMATOLOGIC/IMMUNOLOGIC: Absent: easy bleeding, easy bruising, lymphadenopathy, frequent infections ENDOCRINE: Absent: unexplained weight gain, unexplained weight loss, heat intolerance, cold intolerance NEUROLOGIC: Absent: headache, focal weakness or paresthesias, dizziness, unsteady gait, seizure, mental status changes, bladder or bowel incontinence PSYCHIATRIC: Absent: anxiety, depression, suicidal or homicidal ideation, hallucinations. Is the patient limited Bengali proficient: No *Physical Exam - Vital Signs Last Vital Signs Temp Pulse Resp BP Pulse Ox 98.5 F 71 20 151/93 97 05/19/18 20:35 05/19/18 20:35 05/19/18 20:35 05/19/18 20:35 05/19/18 20:35 - Physical Exam Comments: 05/19/18 21:40 GENERAL: [The patient is awake, alert, and fully oriented, in no acute distress. ] HEAD: [Normal with no signs of trauma.] EYES: [Pupils equal, round and reactive to light, extraocular movements intact, sclera anicteric, conjunctiva clear.] EXTREMITIES: [Normal range of motion, no edema.] NEUROLOGICAL: [Normal speech, normal gait.] PSYCH: [Normal mood, normal affect.] SKIN: [Warm, Dry, normal turgor, no rashes or lesions noted.] Moderate Sedation - Procedure Monitoring Vital Signs: Procedure Monitoring Vital Signs Temperature 98.5 F 05/19/18 20:35 Pulse Rate 71 05/19/18 20:35 Respiratory Rate 20 05/19/18 20:35 Blood Pressure 151/93 05/19/18 20:35 O2 Sat by Pulse Oximetry (%) 97 05/19/18 20:35 *DC/Admit/Observation/Transfer Diagnosis at time of Disposition: Bleeding nose - Discharge Dispostion Disposition: HOME Condition at time of disposition: Stable Decision to Admit order: No - Referrals Referrals: Chris Ramirez MD [Primary Care Provider] - - Patient Instructions Printed Discharge Instructions: Nosebleed Additional Instructions: You were evaluated for your nosebleed today. Your nasal passages look dry and cracked. Please use the Afrin nasal spray twice a day for 2 days to prevent rebleeding. Do not use for more than 2 days as it can cause rebound congestion Purchase an vanf-oen-yshjnli nasal saline spray and use it twice daily Purchase a humidifier for the house to keep the air moist. Follow up with your primary care doctor as needed. Return to the ER for headache, bleeding despite pressure more than 10 minutes, or if you have any changes in your symptoms. - Post Discharge Activity
== END 2018-05-19 21:45 | disposition home or self-care (01) ==
LOC: JERFT 20:27 → JER 20:27 → JERFT 21:45
DX: R04.0 Epistaxis (principal); Z87.19 Personal history of other diseases of the digestive system
CPT/HCPCS: 99281-25

== ENCOUNTER 2019-04-04 10:01 | Day surgery (SDC) | payer BC, OTHER ==
[2019-04-02 15:33] VITALS: BMI 37.5
[2019-04-04 12:24] VITALS: TEMP 98.3
[2019-04-04 12:45] VITALS: BP 140/77; PULSE 70
--- NOTE | 2019-04-07 10:58 | PATH ---
Surgical Pathology Report Patient Name: BRITTNY MARTE [facility]. Rec. #: [id number] /Age/Gender: 1955 (Age: 63) / M Account: [id number] Location: [facility]-ENDOSCOPY Taken: 04/04/2019 Received: 04/04/2019 Reported: 04/07/2019 Physicians: Erika Macario M.D. Specimen(s) Received A: SIGMOID POLYP B: DISTAL TRANSVERSE COLON POLYP C: RECTAL POLYP Clinical History Family history of colon cancer, personal history of colon polyp Postoperative diagnosis: Polyps Final Diagnosis A. COLON, SIGMOID, BIOPSY: COLONIC MUCOSA WITH EXTRAVASATION OF RED BLOOD CELLS WITHIN LAMINA PROPRIA. NO ACTIVE COLITIS, ARCHITECTURAL DISTORTION, GRANULOMATA, OR DYSPLASIA IDENTIFIED. NO MICROSCOPIC COLITIS IDENTIFIED (NO LYMPHOCYTIC OR COLLAGENOUS COLITIS IDENTIFIED). B. COLON, DISTAL TRANSVERSE, BIOPSY: COLONIC MUCOSA WITH NO PATHOLOGIC CHANGES. NO ACTIVE COLITIS, ARCHITECTURAL DISTORTION, GRANULOMATA, OR DYSPLASIA IDENTIFIED. NO MICROSCOPIC COLITIS IDENTIFIED (NO LYMPHOCYTIC OR COLLAGENOUS COLITIS IDENTIFIED). C. COLON, RECTUM, BIOPSY: HYPERPLASTIC POLYP. Electronically Signed Oli Coker M.D. Gross Description A. Received in formalin, labeled "sigmoid polyp biopsy" are 2 garcia, irregular portions of soft tissue measuring 0.3 and 0.4 cm. in greatest dimension. The specimens are submitted in toto in one cassette. B. Received in formalin, labeled "distal transverse colon polyp biopsy" are 4 garcia, irregular portions of soft tissue ranging from 0.1-0.3 cm. in greatest dimension. The specimens are submitted in toto in one cassette. C. Received in formalin, labeled "rectal polyp biopsy" are 2 garcia, irregular portions of soft tissue averaging 0.2 cm. in greatest dimension. The specimens are submitted in toto in one cassette. DL/04/04/2019 saudi/04/04/2019
== END 2019-04-04 13:02 | disposition home or self-care (01) ==
LOC: JASU-ENDO 10:01
PROVIDERS: ATTEND Internal Medicine Gastroenterology
PROC: 0DBL8ZX Excision of Transverse Colon, Via Natural or Artificial Opening Endoscopic, Diagnostic (ICD-10-PCS; 2019-04-04)
PROC: 0DBN8ZX Excision of Sigmoid Colon, Via Natural or Artificial Opening Endoscopic, Diagnostic (ICD-10-PCS; 2019-04-04)
PROC: 0DBP8ZX Excision of Rectum, Via Natural or Artificial Opening Endoscopic, Diagnostic (ICD-10-PCS; principal; 2019-04-04 10:30)
DX: Z12.11 Encounter for screening for malignant neoplasm of colon (principal); Z86.010 Personal history of colon polyps; Z80.0 Family history of malignant neoplasm of digestive organs; K62.1 Rectal polyp; D12.5 Benign neoplasm of sigmoid colon; D12.3 Benign neoplasm of transverse colon; K63.89 Other specified diseases of intestine
CPT/HCPCS: 88305-TC

== ENCOUNTER 2022-05-16 14:53 | Emergency (ER) | payer BC, OTHER ==
[2022-05-16 15:09] VITALS: BMI 34.4
[2022-05-16 16:18] LABS: BILIRUBIN,TOTAL 1.7 mg/dl (0.2-1); CREATININE 0.8 mg/dl (0.55-1.3); TOT PROT 7.1 g/dl (6.4-8.2)
[2022-05-16 16:19] LABS: HEMATOCRIT 45.7 % (35.4-49); HEMOGLOBIN 16.1 G/dL (11.7-16.9); MCH 31.3 pg (25.7-33.7); MCHC 35.2 g/dl (32.0-35.9); MEAN PLT VOLUME 9.7 fl (7.5-11.1); PLATELET COUNT 253.7 10^3/uL (134-434); RBC 5.13 10^6/uL (4.00-5.60); RDW 13.1 % (11.9-15.9); WHITE BLOOD COUNT 16.9 10^3/uL (4.0-10.8)
[2022-05-16 17:17] LABS: ERYTHROCYTE SEDIMENTATION RATE 11 mm/hr (0-20)
[2022-05-16] MEDS ORDERED: IBUPROFEN 600 MG TABLET (FP) PO ONE ×2 (17:19→17:45)
[2022-05-16 17:20] LABS: PLATELET ESTIMATE ADEQUATE
[2022-05-16 17:50] VITALS: BP 126/83; PULSE 73; RESP 16; TEMP 99.2
== END 2022-05-16 17:51 | disposition home or self-care (01) ==
LOC: FER 14:53
DX: M19.90 Unspecified osteoarthritis, unspecified site (principal)
CPT/HCPCS: 36415; 80053; 85027; 85651; 86140; 99283-25